=== PATIENT | female | born 1970 | race Caucasian/White ===

== ENCOUNTER 2020-03-11 18:25 | Inpatient (IN) | payer OTHER ==
[~2020-03-11] VITALS: Ht 165.1 cm; Wt 98.4 kg
[2020-03-11] MEDS ORDERED: HOLD METFORMIN - RECEIVED CONTRAST 20 ML VIAL IV SCH (19:00)
[2020-03-11] MEDS ORDERED: fentaNYL INJECTION 100 MCG/2 ML AMP IVP ONE (19:00)
[2020-03-11] MEDS ORDERED: IOHEXOL 350 MG/ML 100 ML (OMNIPAQUE 350) VIAL IV ONE (19:00)
[2020-03-11] MEDS ORDERED: NS 100 ML (IVPB) BAG IV ONE (19:00)
[2020-03-11] MEDS ORDERED: ONDANSETRON 4 MG/2 ML (SDV) Z0FRAN IVP ONE (19:00)
--- NOTE | 2020-03-11 19:00 | NUR ---
REPORT TO ANTONIETTA RIVERA
--- OUTSIDE RECORDS SUMMARY | 2020-03-11 19:01 | XMS REPORT ---
Author Author India WHALEY Organization [facility] Address [address] [place] [address] Care Team Providers Care Database Management Specialist Name Role Phone ESTHER WHALEY Unavailable PROBLEMS Unknown Problems ALLERGIES No Information ENCOUNTERS Encounter Location Date Diagnosis [facility] [address] [facility] [id number] [place] [address] Mar, [facility] [address] [id number] [place] [address] Apr, Viral upper respiratory trac t infection J06.9 and Sore throat J02.9 [facility] [address] [id number] [place] [address] Dec, [facility] IN [facility] [address] [id number] [place] [address] Nov, [facility] [address] [id number] [place] [address] Nov, [facility] [address] [id number] [place] [address] Nov, UTI (lower urinary tract inf ection) N39.0 and Dysuria R30.0 IMMUNIZATIONS No Known Immunizations SOCIAL HISTORY Never Assessed REASON FOR VISIT insurance and paperwork PLAN OF CARE VITAL SIGNS MEDICATIONS Unknown Medications RESULTS No Results PROCEDURES No Known procedures INSTRUCTIONS MEDICATIONS ADMINISTERED No Known Medications MEDICAL (GENERAL) HISTORY Type Description Date Medical History anxiety Medical History depression Medical History Hypothyroidism Medical History anemia Surgical History gastric bypass 2002 Hospitalization History see surgeries
--- OUTSIDE RECORDS SUMMARY | 2020-03-11 19:01 | XMS REPORT ---
Author Author India LAO Organization [facility] Address [address] [place] [address] Care Team Providers Care Shipbuilding Draftsperson Name Role Phone ANNAMARIA LAO Unavailable PROBLEMS Unknown Problems ALLERGIES No Information ENCOUNTERS Encounter Location Date Diagnosis [facility] [address] [place] [address] Apr, Viral upper respiratory tract infection J06.9 and Sore throat J02.9 [facility] [address] [place] [address] Dec, [facility] [address] [facility] [place] [address] Nov, [facility] [address] [facility] [place] [address] Nov, [facility] [address] [place] [address] Nov, UTI (lower urinary tract infection) N39. 0 and Dysuria R30.0 IMMUNIZATIONS No Known Immunizations SOCIAL HISTORY Never Assessed REASON FOR VISIT Lab results PLAN OF CARE VITAL SIGNS MEDICATIONS No Known Medications RESULTS No Results PROCEDURES No Known procedures INSTRUCTIONS MEDICATIONS ADMINISTERED No Known Medications MEDICAL (GENERAL) HISTORY Type Description Date Medical History anxiety Medical History depression Medical History Hypothyroidism Medical History anemia Surgical History gastric bypass 2001 Hospitalization History see surgeries
--- OUTSIDE RECORDS SUMMARY | 2020-03-11 19:01 | XMS REPORT ---
Author Author India BROWN Organization [facility] Address [address] [place] [address] Care Team Providers Care Political Anthropologist Name Role Phone MARIO BROWN Unavailable PROBLEMS Unknown Problems ALLERGIES No Information ENCOUNTERS Encounter Location Date Diagnosis [facility] [address] [place] [facility] [place] [address] Dec, [facility] [address] [place] [address] Nov, [facility] [address] [place] [facility] [address] Nov, [facility] IN [facility] [address] [place] [address] Nov, UTI (lower urinary tract infection) N39. 0 and Dysuria R30.0 IMMUNIZATIONS No Known Immunizations SOCIAL HISTORY Never Assessed REASON FOR VISIT Test results PLAN OF CARE VITAL SIGNS MEDICATIONS Unknown Medications RESULTS No Results PROCEDURES No Known procedures INSTRUCTIONS MEDICATIONS ADMINISTERED No Known Medications MEDICAL (GENERAL) HISTORY Type Description Date Medical History anxiety Medical History depression Medical History Hypothyroidism Medical History anemia Surgical History gastric bypass 2001 Hospitalization History see surgeries
--- OUTSIDE RECORDS SUMMARY | 2020-03-11 19:01 | XMS REPORT ---
Author Author India LAO Organization [facility] Address [address] [place] [address] Care Team Providers Care Station Attendant Name Role Phone ANNAMARIA LAO Unavailable PROBLEMS Unknown Problems ALLERGIES No Known Allergies ENCOUNTERS Encounter Location Date Diagnosis [facility] [address] [place] [address] Apr, Viral upper respiratory tract infection J06.9 and Sore throat J02.9 [facility] [address] [place] [address] Dec, [facility] [address] [facility] [address] Nov, [facility] [address] [facility] [address] Nov, [facility] [address] [facility] [address] Nov, UTI (lower urinary tract infection) N39. 0 and Dysuria R30.0 IMMUNIZATIONS No Known Immunizations SOCIAL HISTORY Never Assessed REASON FOR VISIT UTI symptoms x2 days.. [facility] PLAN OF CARE Activity Details Follow Up f/u pending culture and prn Reason: VITAL SIGNS Height 65 in 2018-11-16 Weight 190 lbs 2018-11-16 Temperature 97.9 degrees Fahrenheit 2018-11-16 Heart Rate 74 bpm 2018-11-16 Respiratory Rate 20 2018-11-16 Oximetry 98 % 2018-11-16 BMI 31.61 kg/m2 2018-11-16 Blood pressure systolic 120 mmHg 2018-11-16 Blood pressure diastolic 74 mmHg 2018-11-16 MEDICATIONS Medication Instructions Dosage Frequency Start Date End Date Duration S tatus Macrobid 100 MG Orally every 12 hrs 1 capsule with food 12h 13 M ar, 2018 05 days Active Prozac 40 MG Orally Once a day 1 capsule 24h 30 day( s) Active Levothyroxine Sodium 112 MCG Orally Once a day 1 capsule o n an empty stomach in the morning 24h 30 day(s) Active Ferrous Sulfate 325 (65 Fe) MG Orally 3 times a day 1 tablet 8h 30 day(s) Active RESULTS No Results PROCEDURES Procedure Date Ordered Result Body Site URINE CULTURE/COLONY COUNT November 16, 2018 URINALYSIS, AUTO, W/O SCOPE November 16, 2018 INSTRUCTIONS MEDICATIONS ADMINISTERED No Known Medications MEDICAL (GENERAL) HISTORY Type Description Date Medical History anxiety Medical History depression Medical History Hypothyroidism Medical History anemia Surgical History gastric bypass 2001 Hospitalization History see surgeries
--- OUTSIDE RECORDS SUMMARY | 2020-03-11 19:01 | XMS REPORT | Continuity of Care Document ---
Author Organization Unknown Address Unknown Phone Unavailable Allergies Active Description Code Type Severity Reaction Onset Reported/Identified Relationship to Patient Clinical Status Yes No Known Drug Allergies [id number] Drug Allergy Unknown N/A 03/11/2020 Medications There is no data. Problems There is no data. Procedures There is no data. Results Test Result Range CULTURE, URINE - 11/16/18 19:05 CULTURE, URINE, ROUTINE SEE NOTE NRG TESTOSTERONE, TOTAL (WOMEN, CHILDREN, HY POGONADAL MALES) - 03/04/20 14:02 TESTOSTERONE, TOTAL, LC/MS/MS 20 ng/dL 2-45 FREE TESTOSTERONE 0.7 pg/mL 0.1-6.4 Encounters ACCT No. Visit Date/Time Discharge Status Pt. Type Provider Facility Loc./Unit Complaint [id number] 03/11/2020 10:00:00 [facility] [id number] 03/04/2020 13:45:00 Document Registration [id number] 11/16/2018 18:00:00 Document Registration [id number] 03/11/2020 18:28:[address] Emergency LETTY DAMON, YUMIKO Kingsley [facility] ER ABD PAIN
[2020-03-11 19:06] LABS: BASOPHILS % (AUTO) 0 % (0-10); EOSINOPHILS # (AUTO) 0.3 10^3/uL (0.0-0.3); EOSINOPHILS % (AUTO) 2 % (0-10); HEMATOCRIT 43 % (35-52); LYMPHOCYTES # (AUTO) 1.9 X 10^3 (1.0-4.0); LYMPHOCYTES % (AUTO) 14 % (12-44); MEAN CORPUSCULAR HEMOGLOBIN 29 PG (25-34); MEAN CORPUSCULAR HGB CONC 33 G/DL (32-36); MEAN CORPUSCULAR VOLUME 90 FL (80-99); MEAN PLATELET VOLUME 9.6 FL (7.4-10.4); MONOCYTES # (AUTO) 1.3 X 10^3 (0.0-1.0); MONOCYTES % (AUTO) 10 % (0-12); NEUTROPHILS % (AUTO) 74 % (42-75); PLATELET COUNT 373 10^3/uL (130-400); RED CELL DISTRIBUTION WIDTH 17.5 % (10.0-14.5); WHITE BLOOD COUNT 13.6 10^3/uL (4.3-11.0)
[2020-03-11 19:14] LABS: ALBUMIN 3.9 GM/DL (3.2-4.5); CHLORIDE 103 MMOL/L (98-107); POTASSIUM 4.3 MMOL/L (3.6-5.0); SODIUM 136 MMOL/L (135-145)
[2020-03-11 19:15] LABS: CALCIUM 8.8 MG/DL (8.5-10.1)
[2020-03-11] MEDS ORDERED: NS IV 1000 ML 1,000 ML IV SCH (19:16)
[2020-03-11 19:17] LABS: GLUCOSE 97 MG/DL (70-105); TOTAL PROTEIN 6.6 GM/DL (6.4-8.2)
[2020-03-11 19:18] LABS: BILIRUBIN,TOTAL 0.5 MG/DL (0.1-1.0); CARBON DIOXIDE 22 MMOL/L (21-32)
[2020-03-11 19:20] LABS: ALKALINE PHOSPHATASE 104 U/L (40-136); CREATININE SERUM 0.84 MG/DL (0.60-1.30); GFR ESTIMATED > 60
[2020-03-11 19:21] LABS: BUN/CREATININE RATIO 18
[2020-03-11 19:23] LABS: ALANINE AMINOTRANSFERASE 99 U/L (0-55)
[2020-03-11 19:29] LABS: LIPASE 483 U/L (8-78)
[2020-03-11 19:32] LABS: ANISOCYTOSIS SLIGHT; EOSINOPHILS % (MANUAL) 2 %; LYMPHOCYTES % (MANUAL) 14 %; MONOCYTES % (MANUAL) 9 %; NEUTROPHILS % (MANUAL) 75 %
--- NOTE | 2020-03-11 19:43 | ED Abdominal Pain ---
General Chief Complaint: Abdominal/GI Problems Stated Complaint: ABD PAIN Nursing Triage Note: PT CO OF ABD PAIN, PT STATES HAS LOWER ABD CRAMPING ALL THE TIME. PT STATES HAS UPPER L ABD PAIN 10/10. STATES SCHEDULED TO HAVE IUD REMOVED NEXT WEDNESDAY AND HAVE [place]ERECT[place]. PT STATES HAS HX OF ANEMIA. DENIES FEVER AND COUGH. WAS INSTRUCTED TO COME TO ED BY DR ZUNIGA OFFICE Sepsis Screen: No Definite Risk Source of Information: Patient, Other (Dr. Zuniga and staff) Exam Limitations: No Limitations History of Present Illness Date Seen by Provider: Mar 11, 2020 Time Seen by Provider: 18:30 Initial Comments This 49-year-old woman presents to the emergency room by private vehicle with complaints of left upper quadrant pain and nausea. She reports her pain as 10 out of 10 and radiates to her back. She was sent to the ER by Dr. Smith's staff. She had seen him earlier in the day because of problems with heavy vaginal bleeding and an embedded IUD. IUD was placed 3 months ago she bled all through the month of February. Dr. Zuniga performed an ultrasound of the clinic and suspected the IUD was embedded. She has hysterectomy scheduled for a week from tomorrow in [place], [place]. She took Tylenol with Codeine today and pain seemed to escalate after that. Patient reports her anemia and requiring iron infusions and transfusions in the past. He denies any concussion symptoms at this time. He states the right eye feels "weird" but he denies any vision deficit. Allergies and Home Medications Allergies Coded Allergies: No Known Drug Allergies (Unverified , 03/11/20) Patient Home Medication List Home Medication List Reviewed: Yes Review of Systems Review of Systems Constitutional: no symptoms reported EENTM: No Symptoms Reported Respiratory: No Symptoms Reported Cardiovascular: No Symptoms Reported Gastrointestinal: See HPI Genitourinary: No Symptoms Reported Musculoskeletal: no symptoms reported Skin: no symptoms reported Psychiatric/Neurological: No Symptoms Reported Endocrine: No Symptoms Reported Hematologic/Lymphatic: No Symptoms Reported Past Ecbysqr-Nhypfk-Tanxqu Hx Past Med/Social Hx: Reviewed and Corrections made Patient Social History Alcohol Use: Denies Use Recreational Drug Use: No Smoking Status: Never a Smoker Recent Foreign Travel: No Contact w/Someone Who Travel: No Recent Infectious Disease Expo: No Recent Hopitalizations: No Physical Abuse: No Sexual Abuse: No Seasonal Allergies Seasonal Allergies: No Past Medical History Surgeries: Yes (GASTRIC BY PASS, IUD, Essure) Gallbladder, Tubal Ligation Respiratory: No Cardiac: No Neurological: No : No LAY OUT CARPENTER History: IUD, Tubal Ligation (Essure) Genitourinary: No Gastrointestinal: No Musculoskeletal: No Endocrine: Yes Hypothyroidsim Psychosocial: Yes Depression Integumentary: No Physical Exam Vital Signs Vital Signs - First Documented 03/11/20 18:39 Temp 36.8 Pulse 71 Resp 18 B/P (MAP) 126/88 (101) Pulse Ox 100 Capillary Refill : Less Than 3 Seconds Height/Weight/BMI Height: '" Weight: lbs. oz. kg; 34.00 BMI Method: General Appearance: WD/WN, no apparent distress HEENT: PERRL/EOMI, other (no apparent dental injury. 4-5 cm laceration on the right parietal scalp.) Neck: non-tender, normal inspection Respiratory: lungs clear, normal breath sounds, no respiratory distress, no accessory muscle use Cardiovascular: regular rate, rhythm, no edema, no murmur Gastrointestinal: normal bowel sounds, non tender, soft Extremities: non-tender, other (left BKA) Neurologic/Psychiatric: electrician chief II-XII nml as tested, normal mood/affect, oriented x 3; No motor weakness; sensory deficit (chronic and unchanged) Skin: normal color, warm/dry Progress/Results/Core Measures Results/Orders Lab Results Laboratory Tests Test 03/11/20 18:56 03/11/20 19:50 Range/Units White Blood Count 13.6 H 4.3-11.0 10^3/uL Red Blood Count 4.77 4.35-5.85 10^6/uL Hemoglobin 14.0 11.5-16.0 G/DL Hematocrit 43 35-52 % Mean Corpuscular Volume 90 80-99 FL Mean Corpuscular Hemoglobin 29 25-34 PG Mean Corpuscular Hemoglobin Concent 33 32-36 G/DL Red Cell Distribution Width 17.5 H 10.0-14.5 % Platelet Count 373 130-400 10^3/uL Mean Platelet Volume 9.6 7.4-10.4 FL Neutrophils (%) (Auto) 74 42-75 % Lymphocytes (%) (Auto) 14 12-44 % Monocytes (%) (Auto) 10 0-12 % Eosinophils (%) (Auto) 2 0-10 % Basophils (%) (Auto) 0 0-10 % Neutrophils # (Auto) 10.0 H 1.8-7.8 X 10^3 Lymphocytes # (Auto) 1.9 1.0-4.0 X 10^3 Monocytes # (Auto) 1.3 H 0.0-1.0 X 10^3 Eosinophils # (Auto) 0.3 0.0-0.3 10^3/uL Basophils # (Auto) 0.0 0.0-0.1 10^3/uL Neutrophils % (Manual) 75 % Lymphocytes % (Manual) 14 % Monocytes % (Manual) 9 % Eosinophils % (Manual) 2 % Anisocytosis SLIGHT Sodium Level 136 135-145 MMOL/L Potassium Level 4.3 3.6-5.0 MMOL/L Chloride Level 103 98-107 MMOL/L Carbon Dioxide Level 22 21-32 MMOL/L Anion Gap 11 5-14 MMOL/L Blood Urea Nitrogen 15 7-18 MG/DL Creatinine 0.84 0.60-1.30 MG/DL Estimat Glomerular Filtration Rate > 60 BUN/Creatinine Ratio 18 Glucose Level 97 70-105 MG/DL Calcium Level 8.8 8.5-10.1 MG/DL Corrected Calcium 8.9 8.5-10.1 MG/DL Total Bilirubin 0.5 0.1-1.0 MG/DL Aspartate Amino Transf (AST/SGOT) 239 H 5-34 U/L Alanine Aminotransferase (ALT/SGPT) 99 H 0-55 U/L Alkaline Phosphatase 104 40-136 U/L C-Reactive Protein High Sensitivity 0.07 0.00-0.50 MG/DL Total Protein 6.6 6.4-8.2 GM/DL Albumin 3.9 3.2-4.5 GM/DL Lipase 483 H 8-78 U/L Thyroid Stimulating Hormone (TSH) 10.60 H 0.35-4.94 UIU/ML Free Thyroxine 0.95 0.70-1.48 NG/DL Serum Test, Qualitative NEGATIVE NEGATIVE Urine Color YELLOW Urine Clarity CLEAR Urine pH 5.5 5-9 Urine Specific [place] 1.010 L 1.016-1.022 Urine Protein NEGATIVE NEGATIVE Urine Glucose (UA) NEGATIVE NEGATIVE Urine Ketones NEGATIVE NEGATIVE Urine Nitrite NEGATIVE NEGATIVE Urine Bilirubin NEGATIVE NEGATIVE Urine Urobilinogen 2.0 < = 1.0 MG/DL Urine Leukocyte Esterase NEGATIVE NEGATIVE Urine RBC (Auto) 3+ H NEGATIVE Urine RBC 0-2 /HPF Urine WBC RARE /HPF Urine Squamous Epithelial Cells 0-2 /HPF Urine Crystals NONE /LPF Urine Bacteria TRACE /HPF Urine Casts NONE /LPF Urine Mucus NEGATIVE /LPF Urine Culture Indicated NO My Orders Orders - YUMIKO SAENZ MD Cbc With Automated Diff (03/11/20 18:30) Comprehensive Metabolic Panel (03/11/20 18:30) Hs C Reactive Protein (03/11/20 18:30) Ua Culture If Indicated (03/11/20 18:30) Ed Iv/Invasive Line Start (03/11/20 18:30) Hcg,Qualitative Serum (03/11/20 18:40) Fentanyl Injection (Sublimaze Injection (03/11/20 19:00) Ondansetron Injection (Zofran Injectio (03/11/20 19:00) Ct Abdomen/Pelvis W (03/11/20 18:54) Iohexol Injection (Omnipaque 350 Mg/Ml 1 (03/11/20 19:00) Received Contrast (Hold Metformin- Contr (03/11/20 19:00) Ns (Ivpb) (Sodium Chloride 0.9% Ivpb Bag (03/11/20 19:00) Manual Differential (03/11/20 18:56) Ns Iv 1000 Ml (Sodium Chloride 0.9%) (03/11/20 19:16) Lipase (03/11/20 18:56) Thyroid Stimulating Hormone (03/11/20 20:06) Free T4 (Free Thyroxine) (03/11/20 20:06) Medications Given in ED Current Medications Medications Dose Ordered Sig/Jozef Route Start Time Stop Time Status Last Admin Dose Admin Fentanyl Citrate 50 mcg ONCE ONCE IVP 03/11/20 19:00 03/11/20 19:01 DC 03/11/20 19:05 50 MCG Iohexol 100 ml ONCE ONCE IV 03/11/20 19:00 03/11/20 19:01 DC 03/11/20 19:35 100 ML Ondansetron HCl 8 mg ONCE ONCE IVP 03/11/20 19:00 03/11/20 19:01 DC 03/11/20 19:04 8 MG Sodium Chloride 100 ml ONCE ONCE IV 03/11/20 19:00 7/6/20 19:01 DC 03/11/20 19:35 100 ML Vital Signs/I&O 03/11/20 18:39 Temp 36.8 Pulse 71 Resp 18 B/P (MAP) 126/88 (101) Pulse Ox 100 Blood Pressure Mean: 101 Progress Progress Note : Time: 19:44 Progress Note Patient was found to have pancreatitis with elevated lipase and probable ileus on CT scan. Case was reviewed with Dr. Sena and with patient. After discussion patient is agreeable to admission for observation for bowel rest and IV fluid and medication support. Cause of her pancreatitis is uncertain. She does not drink alcohol, does not have cholecystitis, and is not taking medic ations to cause pancreatitis. Symptoms were managed with fentanyl and Zofran. A liter of IV fluid was infused. Dr. Zuniga was updated. Diagnostic Imaging Diagonstic Imaging: CT Plain Films/CT/US/NM/MRI: abdomen, pelvis Comments CT abdomen and pelvis viewed by me and report reviewed. See report below: NAME: JAVY OSUNA [facility] REC#: [id number] PT STATUS: REG ER : 1970 PHYSICIAN: YUMIKO SAENZ MD ADMIT DATE: 03/11/20/ER Draft Date of Exam:03/11/20 CT ABDOMEN/PELVIS W PROCEDURE: CT abdomen and pelvis with contrast. TECHNIQUE: Multiple contiguous axial images were obtained through the abdomen and pelvis after administration of intravenous contrast. Auto Exposure Controls were utilized during the CT exam to meet ALARA standards for radiation dose reduction. INDICATION: Pain, vaginal bleeding COMPARISON: None available FINDINGS: Visualized lung bases are clear. Tiny hiatal hernia. Cholecystectomy. Minimal intrahepatic biliary dilatation is noted, likely secondary to reservoir effect status post cholecystectomy. The spleen is unremarkable. The adrenal glands are unremarkable. The pancreas is unremarkable. Postsurgical changes of a gastric bypass are noted. The bilateral kidneys are unremarkable. No aneurysmal dilatation of the abdominal aorta. The urinary bladder is unremarkable. Bilateral Essure devices are in place. The uterus is mildly prominent in size without focal mass lesion. Adnexal structures are unremarkable for age. Loops of small bowel near the anastomosis within the left upper abdomen are at the upper limits of normal in size measuring up to 2.7 cm. However, there does appear to be fecalization of small bowel contents within the left abdomen as well as within the terminal ileum. No significant adenopathy, free air, or free fluid within the abdomen or pelvis. Grade 1 anterolisthesis of L5 on S1 secondary to bilateral pars intra-articularis defects of L5. No acute osseous abnormality. IMPRESSION: Fecalization of small bowel contents within the left abdomen as well as within the terminal ileum. This may relate to underlying hypoperistalsis or low-grade ileus. No abnormally dilated loops of bowel. Postsurgical changes of a gastric bypass. Grade 1 anterolisthesis of L5 on S1 secondary to bilateral pars intra-articularis defects of L5. Mild intrahepatic biliary dilatation, favored to relate to reservoir effect status post cholecystectomy. Tiny hiatal hernia. Additional findings as described above. Dictated on workstation # [id number] Dict: 03/11/201941 Trans: 03/11/201958 [facility] [id number] Interpreted by: MADDI JEAN BAPTISTE MD Departure Communication (Admissions) Time/Spoke to Admitting Phy: 20:25 Dr. Leggett Time/Spoke to Consulting Phy: 20:10 Dr. Sena Impression Primary Impression: Pancreatitis Qualified Codes: K85.90 - Acute pancreatitis without necrosis or infection, unspecified Additional Impressions: Ileus Left upper quadrant pain Nausea alone Disposition: ADMITTED INPATIENT Condition: Improved Admissions Decision to Admit Reason: Admit from ER (General) Decision to Admit/Date: Mar 11, 2020 Time/Decision to Admit Time: 20:10 Copy Copies To 1: ERNESTINA ZUNIGA JOSHUA T MD Mar 11, 2020 19:43
--- NOTE | 2020-03-11 19:59 | Diagnostic Imaging Report ---
PROCEDURE: CT abdomen and pelvis with contrast. TECHNIQUE: Multiple contiguous axial images were obtained through the abdomen and pelvis after administration of intravenous contrast. Auto Exposure Controls were utilized during the CT exam to meet ALARA standards for radiation dose reduction. INDICATION: Pain, vaginal bleeding COMPARISON: None available FINDINGS: Visualized lung bases are clear. Tiny hiatal hernia. Cholecystectomy. Minimal intrahepatic biliary dilatation is noted, likely secondary to reservoir effect status post cholecystectomy. The spleen is unremarkable. The adrenal glands are unremarkable. The pancreas is unremarkable. Postsurgical changes of a gastric bypass are noted. The bilateral kidneys are unremarkable. No aneurysmal dilatation of the abdominal aorta. The urinary bladder is unremarkable. Bilateral Essure devices are in place. The uterus is mildly prominent in size without focal mass lesion. Adnexal structures are unremarkable for age. Loops of small bowel near the anastomosis within the left upper abdomen are at the upper limits of normal in size measuring up to 2.7 cm. However, there does appear to be fecalization of small bowel contents within the left abdomen as well as within the terminal ileum. No significant adenopathy, free air, or free fluid within the abdomen or pelvis. Grade 1 anterolisthesis of L5 on S1 secondary to bilateral pars intra-articularis defects of L5. No acute osseous abnormality. IMPRESSION: Fecalization of small bowel contents within the left abdomen as well as within the terminal ileum. This may relate to underlying hypoperistalsis or low-grade ileus. No abnormally dilated loops of bowel. Postsurgical changes of a gastric bypass. Grade 1 anterolisthesis of L5 on S1 secondary to bilateral pars intra-articularis defects of L5. Mild intrahepatic biliary dilatation, favored to relate to reservoir effect status post cholecystectomy. Tiny hiatal hernia. Additional findings as described above. Dictated by: Dictated on workstation # [id number]
[2020-03-11 20:00] LABS: BILIRUBIN,URINE NEGATIVE (NEGATIVE); CLARITY,URINE CLEAR; COLOR,URINE YELLOW; GLUCOSE, URINE (UA) NEGATIVE (NEGATIVE); KETONES,URINE NEGATIVE (NEGATIVE); LEUKOCYTE ESTERASE ,URINE NEGATIVE (NEGATIVE); NITRITE,URINE NEGATIVE (NEGATIVE); PH,URINE 5.5 (5-9); PROTEIN,URINE NEGATIVE (NEGATIVE)
[2020-03-11 20:06] LABS: BACTERIA,URINE TRACE /HPF; RBC,URINE 0-2 /HPF; SQUAMOUS EPITHELIAL CELL,UR 0-2 /HPF; WBC,URINE RARE /HPF
[2020-03-11 20:44] LABS: FREE T4 (FREE THYROXINE) 0.95 NG/DL (0.70-1.48)
--- OUTSIDE RECORDS SUMMARY | 2020-03-11 20:45 | XMS REPORT | Continuity of Care Document ---
Author Organization Unknown Address Unknown Phone Unavailable Allergies Active Description Code Type Severity Reaction Onset Reported/Identified Relationship to Patient Clinical Status Yes No Known Drug Allergies [id number] Drug Allergy Unknown N/A 03/11/2020 Medications There is no data. Problems There is no data. Procedures There is no data. Results Test Result Range CULTURE, URINE - 11/16/18 19:05 CULTURE, URINE, ROUTINE SEE NOTE NRG TESTOSTERONE, TOTAL (WOMEN, CHILDREN, HY POGONADAL MALES) - 03/04/20 14:02 TESTOSTERONE, TOTAL, LC/MS/MS 20 ng/dL 2-45 FREE TESTOSTERONE 0.7 pg/mL 0.1-6.4 Complete blood count (CBC) with automate d white blood cell (WBC) differential - 03/11/20 18:56 Blood leukocytes automated count (number/volume) 13.6 10*3/uL 4.3-11.0 Blood erythrocytes automated count (number/volume) 4.77 10*6/uL 4.35-5.85 Venous blood hemoglobin measurement (mass/volume) 14.0 g/dL 11.5-16.0 Blood hematocrit (volume fraction) 43 % 35-52 Automated erythrocyte mean corpuscular volume 90 [ foz_us] 80-99 Automated erythrocyte mean corpuscular h emoglobin (mass per erythrocyte) 29 pg 25-34 Automated erythrocyte mean corpuscular h emoglobin concentration measurement (mass/volume) 33 g/dL 32-36 Automated erythrocyte distribution width ratio 17. 5 % 10.0- 14.5 Automated blood platelet count (count/volume) 373 10*3/uL 130-400 Automated blood platelet mean volume measurement 9.6 [foz_us] 7.4-10.4 Automated blood neutrophils/100 leukocytes 74 % 42-75 Automated blood lymphocytes/100 leukocytes 14 % 12-44 Blood monocytes/100 leukocytes 10 % 0-12 Automated blood eosinophils/100 leukocytes 2 % 0-10 Automated blood basophils/100 leukocytes 0 % 0-10 Blood neutrophils automated count (number/volume) 10.0 10*3 1.8-7.8 Blood lymphocytes automated count (number/volume) 1.9 10*3 1.0-4.0 Blood monocytes automated count (number/volume) 1. 3 10*3 0.0-1.0 Automated eosinophil count 0.3 10*3/uL 0 .0-0.3 Automated blood basophil count (count/volume) 0.0 10*3/uL 0.0-0.1 Serum or plasma choriogonadotropin (preg rubin test) detection - 03/11/20 18:56 Serum or plasma choriogonadotropin ( test) de tection NEGATIVE NEGATIVE Comprehensive metabolic panel - 03/11/20 18:56 Serum or plasma sodium measurement (moles/volume) 136 mmol/L 135-145 Serum or plasma potassium measurement (moles/volume) 4.3 mmol/L 3.6-5.0 Serum or plasma chloride measurement (moles/volume) 103 mmol/L 98-107 Carbon dioxide 22 mmol/L 21-32 Serum or plasma anion gap determination (moles/volume) 11 mmol/L 5-14 Serum or plasma urea nitrogen measurement (mass/volume ) 15 mg/dL 7-18 Serum or plasma creatinine measurement (mass/volume) 0.84 mg/dL 0.60-1.30 Serum or plasma urea nitrogen/creatinine mass ratio 18 NRG Serum or plasma creatinine measurement w ith calculation of estimated glomerular filtration rate > NRG Serum or plasma glucose measurement (mass/volume) 97 mg/dL 70-105 Serum or plasma calcium measurement (mass/volume) 8.8 mg/dL 8.5-10.1 Serum or plasma total bilirubin measurement (mass/volu me) 0.5 mg/dL 0.1-1.0 Serum or plasma alkaline phosphatase archana surement (enzymatic activity/volume) 104 U/L 40-136 Serum or plasma aspartate aminotransfera se measurement (enzymatic activity/volume) 239 U/L 5-34 Serum or plasma alanine aminotransferase measurement (enzymatic activity/volume) 99 U/L 0-55 Serum or plasma protein measurement (mass/volume) 6.6 g/dL 6.4-8.2 Serum or plasma albumin measurement (mass/volume) 3.9 g/dL 3.2-4.5 CALCIUM CORRECTED 8.9 mg/dL 8.5-10.1 Lipase - 03/11/20 18:56 Lipase 483 U/L 8-78 Serum or plasma C reactive protein measu rement (mass/volume) - 03/11/20 18:56 Serum or plasma C reactive protein measurement (mass/v olume) 0.07 mg/dL 0.00-0.50 Manual absolute plasma cell count - 0702/23 18:56 Blood monocytes/100 leukocytes 9 % NRG Manual blood segmented neutrophils/100 leukocytes 75 % NRG Manual blood lymphocytes/100 leukocytes 14 % NRG Manual eosinophils/100 leukocytes in nose 2 % NRG Blood anisocytosis detection by light microscopy S LIGHT NRG Complete urinalysis with reflex to cultu re - 03/11/20 19:50 Urine color determination YELLOW NRG Urine clarity determination CLEAR NR G Urine pH measurement by test strip 5.5 5-9 Specific gravity of urine by test strip 1.010 1.016-1.022 Urine protein assay by test strip, semi-quantitative NEGATIVE NEGATIVE Urine glucose detection by automated test strip NE GATIVE NEGATIVE Erythrocytes detection in urine sediment by light micr oscopy 3+ NEGATIVE Urine ketones detection by automated test strip NE GATIVE NEGATIVE Urine nitrite detection by test strip NEGATIVE NEGATIVE Urine total bilirubin detection by test strip NEGA TIVE NEGATIVE Urine urobilinogen measurement by automated test strip (mass/volume) 2.0 mg/dL < = 1.0 Urine leukocyte esterase detection by dipstick NEG ATIVE NEGATIVE Automated urine sediment erythrocyte cou nt by microscopy (number/high power field) [HPF] NRG Automated urine sediment leukocyte count by microscopy (number/high power field) RARE NRG Bacteria detection in urine sediment by light microsco py TRACE NRG Squamous epithelial cells detection in u rine sediment by light microscopy 0-2 NRG Crystals detection in urine sediment by light microsco py NONE NRG Casts detection in urine sediment by light microscopy NONE NRG Mucus detection in urine sediment by light microscopy NEGATIVE NRG Complete urinalysis with reflex to culture NO NRG Encounters ACCT No. Visit Date/Time Discharge Status Pt. Type Provider Facility Loc./Unit Complaint [id number] 03/11/2020 10:00:00 ACT Outpatient RAD[facility]ARIO [facility] [place] [id number] 03/04/2020 13:45:00 Document Registration [id number] 11/16/2018 18:00:00 Document Registration [id number] 03/11/2020 20:27:[address] Inpatient RAAD PICHARDO DO [facility] 4TH PANCREATITIS,NAUSEA,ILEUS
--- NOTE | 2020-03-11 20:52 | NUR ---
Attempted to call report to [facility], states she will call back.
--- NOTE | 2020-03-11 21:28 | NUR ---
JAVY OSUNA admitted to room 418-1, with an admitting diagnosis of PANCREATITIS, NAUSEA, ILEUS, on 03/11/20 from ED via , accompanied by ED STAFF.JAVY OSUNA introduced to surroundings, call light, bed controls, phone, TV, temperature control, lights, meal times, smoking policy, visitor policy, side rail policy, bathrooms and showers. Patient Rights given to patient in the handbook. JAVY OSUNA verbalizes understanding that [facility] is not responsible for the loss or damage to any personal effects or valuables that are kept in the patients posession during their hospitalization. The following Patient Care Plans were discussed with the PATIENT: Discharge Planning, NAUSEA,PANCREATITIS, and ILEUS. JAVY OSUNA verbalizes understanding of Interdisciplinary Patient Education. Patient and/or family were informed about the Rapid Response Team and its purpose.
[2020-03-11] MEDS ORDERED: PROMETHAZINE INJ 25 MG/ML (PHENERGAN) AMP IV PRN (21:30)
[2020-03-11] MEDS ORDERED: ONDANSETRON 4 MG/2 ML (SDV) Z0FRAN IV PRN (21:30)
[2020-03-11 21:34] VITALS: BP 107/71
[2020-03-11] MEDS: FAMOTIDINE 20MG/2ML IV (PEPCID) IV SCH (22:01)
[2020-03-11] MEDS: ENOXAPARIN 40 MG/0.4 ML (LOVENOX) SYR SC SCH ×2 (22:01→22:08)
[2020-03-11] MEDS: HYDROmorphone 2 MG/ML VIAL (DILAUDID) IV PRN (22:01)
[2020-03-11] MEDS: D5 1/2 NS W/KCL 20 MEQ/L 1,000 ML IV SCH (22:01)
[2020-03-11 23:51] VITALS: BP 101/66
[2020-03-12 04:06] VITALS: BP 90/60
[2020-03-12] MEDS: HYDROmorphone 2 MG/ML VIAL (DILAUDID) IV PRN ×4 (04:28→19:46)
[2020-03-12] MEDS: D5 1/2 NS W/KCL 20 MEQ/L 1,000 ML IV SCH (04:32)
[2020-03-12 05:53] LABS: BASOPHILS % (AUTO) 0 % (0-10); EOSINOPHILS # (AUTO) 0.2 10^3/uL (0.0-0.3); EOSINOPHILS % (AUTO) 4 % (0-10); HEMATOCRIT 40 % (35-52); HEMOGLOBIN 12.8 G/DL (11.5-16.0); LYMPHOCYTES # (AUTO) 1.4 X 10^3 (1.0-4.0); LYMPHOCYTES % (AUTO) 25 % (12-44); MEAN CORPUSCULAR HEMOGLOBIN 29 PG (25-34); MEAN CORPUSCULAR HGB CONC 32 G/DL (32-36); MEAN CORPUSCULAR VOLUME 91 FL (80-99); MEAN PLATELET VOLUME 9.7 FL (7.4-10.4); MONOCYTES # (AUTO) 0.6 X 10^3 (0.0-1.0); MONOCYTES % (AUTO) 12 % (0-12); NEUTROPHILS # (AUTO) 3.2 X 10^3 (1.8-7.8); NEUTROPHILS % (AUTO) 59 % (42-75); PLATELET COUNT 332 10^3/uL (130-400); RED CELL DISTRIBUTION WIDTH 17.6 % (10.0-14.5); WHITE BLOOD COUNT 5.4 10^3/uL (4.3-11.0)
[2020-03-12 06:08] LABS: ALBUMIN 3.4 GM/DL (3.2-4.5); CHLORIDE 109 MMOL/L (98-107); POTASSIUM 5.2 MMOL/L (3.6-5.0); SODIUM 141 MMOL/L (135-145)
[2020-03-12 06:09] LABS: CALCIUM 8.4 MG/DL (8.5-10.1)
[2020-03-12 06:10] LABS: GLUCOSE 87 MG/DL (70-105); TOTAL PROTEIN 5.8 GM/DL (6.4-8.2)
[2020-03-12 06:11] LABS: CARBON DIOXIDE 26 MMOL/L (21-32)
[2020-03-12 06:12] LABS: BILIRUBIN,TOTAL 0.6 MG/DL (0.1-1.0)
[2020-03-12 06:14] LABS: ALKALINE PHOSPHATASE 196 U/L (40-136); CREATININE SERUM 0.81 MG/DL (0.60-1.30); GFR ESTIMATED > 60
[2020-03-12 06:15] LABS: BUN/CREATININE RATIO 10
[2020-03-12 06:17] LABS: ALANINE AMINOTRANSFERASE 515 U/L (0-55); LIPASE 73 U/L (8-78)
[2020-03-12 08:00] VITALS: BP 102/70
[2020-03-12] MEDS: medroxyPROGESTERone 10 MG (PROVERA) TAB PO SCH (08:07)
[2020-03-12] MEDS: FAMOTIDINE 20MG/2ML IV (PEPCID) IV SCH ×2 (08:07→20:46)
[2020-03-12] MEDS: LACTATED RINGERS 1,000 ML IV SCH ×3 (08:36→22:29)
--- NOTE | 2020-03-12 10:14 | Consultation ---
History of Present Illness History of Present Illness Patient Consulted On(pascale/time) 03/12/20 10:10 Date Seen by Provider: Mar 12, 2020 Time Seen by Provider: 11:00 Reason for Visit: abnormal vaginal bleeding History of Present Illness History - this is a 49-year-old 3 para 3 female with a long history of abnormal vaginal bleeding. She is a patient of Dr. Zuniga. She states that she has been having heavy vaginal bleeding, though regular, for several months. 3 months ago she had an IUD placed by Saida Meza APRN, at Dr. Hoyos's office in the [place], [place]. She states that following placement of the IUD, Dr. Hoyos confirmed that the IUD was placed appropriately. But she states when Saida went through her ultrasound report with her and, she had "ovarian cysts". She also has had an Essure placed hysteroscopically bilaterally multiple years ago by Dr. Tomer Cam. She states that she had an HSG following placement of the Essure. About 1 month ago she started having even heavier bleeding. She states that prior to the IUD she would gush a large baseball size clots and where tampons and pads. But her bleeding was at least scheduled. About a month ago she started having unscheduled heavier bleeding. She states it was variable and very intermittent and unexpected. She's been having discomfort in the entire lower abdomen but cannot be specific to one area. In addition she also has a history of iron deficiency anemia and has been receiving iron infusions approximately every 3 months with the last one being about a month ago. She saw Dr. Zuniga yesterday for preop. She is scheduled for a laparoscopic hysterectomy on Wednesday in [place]. She states after her appointment she started having pain and she called the office and they told her to take Tylenol with Codeine so she took 2 of them. And she also increased her bleeding so she was to take to Provera. One hour later the pain was even more severe and the bleeding was heavier since Dr. Zuniga [facility] to the emergency room and was told to be paged. Apparently they did a workup in the emergency room and she had no evidence of anemia, but her lipase was elevated and her liver function tests were mildly elevated. They diagnosed her with acute pancreatitis and admitted her. CT scan of the abdomen was essentially negative. But they did diagnose and ileus. No evidence of bowel obstruction. Since admission her bleeding has gotten heavier, so they consulted me because Dr. Zuniga is not mammal control agent. I have not been notified by Dr. Zuniga but he did state that he has her on Provera/medroxyprogesterone when I text him to ask about this consultation. I have asked for records from Dr. Zuniga office, and have not received those. The patient does not think she's had an endometrial biopsy but she does state that she did have an ultrasound. She can't remember at what point the ultrasound was done but thinks it was done at that the [facility]. She has no previous history of pancreatitis and no known history of elevated liver function tests. She did have nausea but never had vomiting. She states she still has some nausea today, but she did have some pain this morning that required pain medication. She had a history of cholecystectomy done via open surgery at the age of 19. She also has a history of an open gastric bypass about 19 years ago. She states she has been able to keep the weight off but has noticed a slight increase in her weight since she was put on Provera a month ago to help with the bleeding. She is hypothyroid, and she has been taking Synthroid at a dose of 112 g she states also that she's had no recent change in her levothyroxine dose and that the last TSH several weeks ago was "okay" today it is 10.4. She is concerned that what is being seen on the ultrasound is essure rather than an embedded IUD. currently she is in bed, she states she needs to get up because she is having some bleeding. But she states it is slightly better. She did have a dose of medroxyprogesterone at 9 a.m. She's currently not complaining of any nausea. She states that pain is currently stable. She has been nothing by mouth since admission last night. She is getting IV fluids. she declines alcohol usage, no drug usage, no excessive Tylenol usage, no previous history of pancreatitis, no fever, no history of autoimmune diseases except hypothyroid. I do not know her cause of hypothyroidism. She is 3 para 3 with 3 uncomplicated vaginal deliveries. Allergies and Home Medications Allergies Coded Allergies: No Known Drug Allergies (Unverified , 03/11/20) Patient Home Medication List Home Medication List Reviewed: Yes Past Mpkxbep-Usmfmg-Fewuxh Hx Past Med/Social Hx: Reviewed and Corrections made Patient Social History Alcohol Use: Denies Use Recreational Drug Use: No Smoking Status: Never a Smoker Recent Foreign Travel: No Contact w/Someone Who Travel: No Recent Infectious Disease Expo: No Recent Hopitalizations: No Physical Abuse: No Sexual Abuse: No Seasonal Allergies Seasonal Allergies: No Past Medical History Surgeries: Yes (GASTRIC BY PASS, IUD, Essure, open cholecystectomy at age 19) Gallbladder, Tubal Ligation Respiratory: No Cardiac: No Neurological: No : No Hx : 3 Hx Para: 3 Reproductive Disorders: Yes (menorrhagia.) FAST FOOD ATTENDANT History: IUD, Tubal Ligation (Essure) Genitourinary: No Gastrointestinal: No Musculoskeletal: No Endocrine: Yes Hypothyroidsim Psychosocial: Yes Depression Integumentary: No Family Medical History Cancer (she reports that her mother had a hysterectomy at age 24 due to "uterine cancer" urine she states that they left her ovaries. It does make me wonder if the mother had cervical dysplasia or cervical cancer rather than uterine cancer with a hysterectomy at that age. No other family history of gynecologic or reproductive cancers that she is aware of.) Review of Systems-General Constitutional: no symptoms reported EENTM: no symptoms reported Respiratory: no symptoms reported Cardiovascular: no symptoms reported Gastrointestinal: LUQ, other (lower pelvic cramping bilateral) Genitourinary: no symptoms reported Musculoskeletal: no symptoms reported Skin: no symptoms reported Psychiatric/Neurological: No Symptoms Reported Physical Exam-General Problems Physical Exam Vital Signs Vital Signs - First Documented 03/11/20 03/11/20 18:39 21:28 Temp 36.8 Pulse 71 Resp 18 B/P (MAP) 126/88 (101) Pulse Ox 100 O2 Delivery Room Air Capillary Refill : Less Than 3 Seconds General Appearance: WD/WN, no apparent distress Neck: non-tender Respiratory: chest non-tender Cardiovascular: regular rate, rhythm Gastrointestinal: other (her abdomen is soft and not tender. There is no masses felt) Genital/Rectal: normal rectal tone, other (because she's currently in bed, I declined doing a pelvic exam at this time. We will await the pelvic and abdominal ultrasounds. The hospital but is not the ideal situation for a pelvic exam or endometrial biopsy. We will continue to request records from [place] and Dr. Zuniga office. But at this point will await ultrasound before we do a pelvic exam) Assessment/Plan Assessment/Plan Admission Diagnosis/Plan 1. acute pancreatitis, improving; etiology unclear 2. Elevated liver function tests, could be due to the pancreatitis or the Tylenol dosage. abdominal ultrasound is pending. Lipid panel, hepatitis panel, HIV are all pending. 3. Menometrorrhagia - this is not a new problem and the treatment for acute menorrhagia would be contraindicated with elevated liver functions in (IV estrogen). She has already received by mouth Provera and are ready has a progestin containing IUD. Depo-Provera would not stop the bleeding acutely. So we will wait for the records from [place] and from Dr. Zuniga office to see what already has been done has been done. But I have ordered a pelvic ultrasound. 4. the patient had a hysterectomy right now. She states they just want this all done. I did discuss with her that with her chemistry panel is not feasible to do a hysterectomy at this point. But we could offer a robotic hysterectomy with possible oophorectomy at a later date. She is very scheduled for laparoscopic hysterectomy in [place]. in addition she is unsure about removing ovaries. The decision about hormone replacement may also be complicated by the elevated liver functions. If this is an acute process then she may be able to take estrogen at a later date, but estrogen is contraindicated in acute and chronic liver disease. 5. I discussed this all with her. At this point we will await the pending labs and the pending ultrasound reports and also pending records from her previous providers. I will come back to speak with the patient once the results of the ultrasounds are available Thank you for this consultation. Please on hesitate to call for further questions or concerns.[phone] Clinical Quality Measures DVT/VTE Risk/Contraindication: Risk Factor Score Per Nursin RFS Level Per Nursing on Admit: 2=Moderate KIANNA SHINE DO Mar 12, 2020 10:14
--- NOTE | 2020-03-12 10:16 | NUR ---
I HAVE ASSESSED PT AND REVIEWED CHARTING AND AGREE WITH DOCUMENTATION PRECEPTOR.
[2020-03-12 12:00] VITALS: BP 101/68
[2020-03-12] MEDS ORDERED: FLUO40CA PO (12:27)
[2020-03-12] MEDS ORDERED: CNC1KV IJ (12:27)
[2020-03-12] MEDS ORDERED: MEFE250C19 PO (12:27)
[2020-03-12] MEDS ORDERED: LEVO112T68 PO (12:27)
[2020-03-12] MEDS ORDERED: MEDR10TA9 PO (12:27)
[2020-03-12] MEDS ORDERED: ACET-2267 PO (12:27)
[2020-03-12] MEDS ORDERED: ACET1TAB43 PO (12:27)
[2020-03-12] MEDS ORDERED: FERR-84 PO (12:27)
--- NOTE | 2020-03-12 12:28 | NUR ---
SPOKE WITH THE PT AND WENT THRU THE EXT MED HISTORY TO COMPLETE THE MED REC 03-11-2020 MEFENAMIC ACID 250MG #20 DIRECTIONS ARE 2 TABS FOR THE FIRST DOSE THEN 1 TAB EVERY 6 HOURS- PT HAS NOT STARTED TAKING THIS YET. HOWEVER I DID PUT IT ON THE MED REC SO IT COULD BE CONTINUED A HOME MED IN INPATIENT OR CAN BE DISCHARGED PROPERLY SPRINTEC WAS RECENTLY FILLED AT [facility] HOWEVER THE PT IS NOT TAKING OTC MEDS: TYLENOL IRON
[2020-03-12 12:36] LABS: TRIGLYCERIDES 136 MG/DL (<150)
[2020-03-12 12:37] LABS: AMYLASE 65 U/L (25-125); CHOLESTEROL 174 MG/DL (< 200); HDL CHOLESTEROL 49 MG/DL (40-60); VLDL CHOLESTEROL 27 MG/DL (5-40)
--- NOTE | 2020-03-12 12:44 | History & Physical-Hospitalist ---
History of Present Illness HPI/Chief Complaint [place] Cazares is a 49-year-old female with past medical history of abnormal uterine bleeding, hypothyroidism, depression, who presented with epigastric abdominal pain. She reports that the pain is sharp and severe and radiates through to her back. She reports nausea but no vomiting. She denies any fevers or chills. She denies any diarrhea. She denies any shortness of breath or cough. She denies any chest pain. She has been having abnormal uterine bleeding. She is scheduled to have a hysterectomy next week. She denies any alcohol use. She denies any illicit drug use. She denies any excessive Tylenol use. She has had her gallbladder removed. She also has a history of gastric bypass. Source: patient Exam Limitations: no limitations Date Seen 03/12/20 Time Seen by a Provider: 11:05 Attending Physician Jen Leggett DO PCP Referring Physician Date of Admission Mar 11, 2020 at 20:27 Home Medications & Allergies Home Medications Reviewed patient Home Medication Reconciliation performed by pharmacy medication reconciliations nuclear medicine technician and/or nursing. Patients Allergies have been reviewed. Allergies Allergies Coded Allergies No Known Drug Allergies (Unverified03/11/20) Past Qxdfofy-Tacpzu-Ojeutd Hx Past Med/Social Hx: Reviewed Nursing Past Med/Soc Hx Patient Social History Alcohol Use: Denies Use Recreational Drug Use: No Smoking Status: Never a Smoker Recent Foreign Travel: No Contact w/other who traveled: No Recent Hopitalizations: No Recent Infectious Disease Expo: No Seasonal Allergies Seasonal Allergies: No Past Medical History Surgeries: Gallbladder, Tubal Ligation : No Hx : 3 Hx Para: 3 Reproductive: Yes (menorrhagia.) IUD, Tubal Ligation (Essure) Endocrine: Hypothyroidsim Psychosocial: Depression Family History Cancer (she reports that her mother had a hysterectomy at age 24 due to "uterine cancer" urine she states that they left her ovaries. It does make me wonder if the mother had cervical dysplasia or cervical cancer rather than uterine cancer with a hysterectomy at that age. No other family history of gynecologic or reproductive cancers that she is aware of.) Review of Systems Constitutional: no symptoms reported EENTM: no symptoms reported Respiratory: no symptoms reported Cardiovascular: no symptoms reported Gastrointestinal: abdominal pain, nausea Genitourinary: no symptoms reported Musculoskeletal: back pain Skin: no symptoms reported Psychiatric/Neurological: No Symptoms Reported Physical Exam Physical Exam Vital Signs Vital Signs - First Documented 03/11/20 03/11/20 18:39 21:28 Temp 36.8 Pulse 71 Resp 18 B/P (MAP) 126/88 (101) Pulse Ox 100 O2 Delivery Room Air Capillary Refill : Less Than 3 Seconds Height, Weight, BMI Height: '" Weight: lbs. oz. kg; 36.09 BMI Method: General Appearance: No Apparent Distress, Obese HEENT: PERRL/EOMI, Pharynx Normal Neck: Normal Inspection, Supple Respiratory: Lungs Clear, Normal Breath Sounds, No Respiratory Distress Cardiovascular: Regular Rate, Rhythm, No Edema, No Murmur Gastrointestinal: Normal Bowel Sounds, Non Tender, Soft Extremity: Normal Inspection, Non Tender, No Pedal Edema Neurologic/Psychiatric: Alert, Oriented x3, No Motor/Sensory Deficits, Normal Mood/Affect Skin: Normal Color, Warm/Dry Results Results/Procedures Labs Laboratory Tests 03/11/20 18:56 03/12/20 05:35 03/13/20 06:09 Patient resulted labs reviewed. Imaging: Reviewed Imaging Report Assessment/Plan Admission Diagnosis Acute pancreatitis Admission Status: Inpatient Order (span 2 midnights) Reason for Inpatient Admission: Pancreatitis requiring further evaluation and treatment Assessment and Plan Acute pancreatitis Elevated LFTs Epigastric pain and elevated lipase CT abdomen showed normal pancreas, large stool burden AST 699 and ALT 515 on arrival, bilirubin normal Hepatitis panel pending HIV pending Check abdominal ultrasound Repeat LFTs tomorrow Nothing by mouth Continue IV fluids Abnormal uterine bleeding LOADING UNIT TOOL SETTER consulted, appreciate assistance Continue medroxyprogesterone Transvaginal ultrasound ordered Hypothyroidism Depression Continue home meds DVT prophylaxis: Lovenox Diagnosis/Problems Diagnosis/Problems (1) Pancreatitis Status: Acute Qualifiers: Chronicity: acute Pancreatitis type: unspecified pancreatitis type Acute pancreatitis complication: no infection or necrosis Qualified Codes: K85.90 - Acute pancreatitis without necrosis or infection, unspecified (2) Elevated LFTs Status: Acute (3) Hypothyroidism Status: Chronic (4) Depression Status: Chronic Clinical Quality Measures DVT/VTE Risk/Contraindication: Risk Factor Score Per Nursin RFS Level Per Nursing on Admit: 2=Moderate ROSEMARY SHERMAN MD Mar 12, 2020 12:44
[2020-03-12 13:36] LABS: HEPATITIS C ANTIBODY C TNP:Duplicate Test
[2020-03-12] MEDS ORDERED: ACETAMINOPHEN 500 MG TAB (TYLENOL) PO PRN (15:30)
[2020-03-12] MEDS ORDERED: KETOROLAC 30 MG/ML VIAL IVP PRN (16:00)
[2020-03-12 16:01] VITALS: BP 105/63
--- NOTE | 2020-03-12 16:35 | Consultation - Surgery ---
History of Present Illness History of Present Illness Patient Consulted On(pascale/time) 03/12/20 16:29 Time Seen by Provider: 15:50 Reason for Visit: abnormal vaginal bleeding History of Present Illness Surgery asked to consult regarding pancreatitis. HPI per ED: PT CO OF ABD PAIN, PT STATES HAS LOWER ABD CRAMPING ALL THE TIME. PT STATES HAS UPPER L ABD PAIN 10/10. STATES SCHEDULED TO HAVE IUD REMOVED NEXT WEDNESDAY AND HAVE HYSTERECTOMY IN [place]. PT STATES HAS HX OF ANEMIA. DENIES FEVER AND COUGH. WAS INSTRUCTED TO COME TO ED BY DR ZUNIGA OFFICE This 49-year-old woman presents to the emergency room by private vehicle with complaints of left upper quadrant pain and nausea. She reports her pain as 10 out of 10 and radiates to her back. She was sent to the ER by Dr. Smith's staff. She had seen him earlier in the day because of problems with heavy vaginal bleeding and an embedded IUD. IUD was placed 3 months ago she bled all through the month of February. Dr. Zuniga performed an ultrasound of the clinic and wolf pected the IUD was embedded. She has hysterectomy scheduled for a week from tomorrow in [place], [place]. She took Tylenol with Codeine today and pain seemed to escalate after that. Patient reports her anemia and requiring iron infusions and transfusions in the past. He denies any concussion symptoms at this time. He states the right eye feels "weird" but he denies any vision deficit. When I spoke to the pt this afternoon she stated she felt much better and had no abdominal pain. At this time her main concern is the vaginal bleeding. She denies ever having pancreatitis prior to this. Allergies and Home Medications Allergies Coded Allergies: No Known Drug Allergies (Unverified , 03/11/20) Home Medications Acetaminophen 500 Mg Tablet, 1,000 MG PO Q8H PRN for PAIN-MILD (1-4), (Reported) Acetaminophen with Codeine 1 Each Tablet, 1 EA PO Q6H PRN for PAIN-MODERATE (5- 7), (Reported) Cyanocobalamin 1,000 Mcg/Ml Inj, 1,000 MCG IJ WEEKLY, (Reported) Ferrous Sulfate 325 Mg Tablet, 325 MG PO DAILY, (Reported) Fluoxetine HCl 40 Mg Capsule, 40 MG PO DAILY, (Reported) Levothyroxine Sodium 112 Mcg Tablet, 112 MCG PO DAILY, (Reported) Medroxyprogesterone Acetate 10 Mg Tablet, 10 MG PO DAILY, (Reported) Mefenamic Acid 250 Mg Capsule, 250-500 MG PO Q6H PRN for PAIN-BREAKTHROUGH, (Reported) PT HAS NOT TAKEN A DOSE OF THIS MEDICATION DIRECTIONS: 2 TABS NOW THEN 1 TAB EVERY 6 HOURS Patient Home Medication List Home Medication List Reviewed: Yes Past Pfziplc-Zgxrfb-Sufxwh Hx Patient Social History Alcohol Use: Denies Use Recreational Drug Use: No Smoking Status: Never a Smoker Recent Foreign Travel: No Contact w/Someone Who Travel: No Recent Infectious Disease Expo: No Recent Hopitalizations: No Seasonal Allergies Seasonal Allergies: No Surgeries History of Surgeries: Yes (GASTRIC BY PASS, IUD, Essure, open cholecystectomy at age 19) Surgeries: Gallbladder, Tubal Ligation Respiratory History of Respiratory Disorde: No Cardiovascular History of Cardiac Disorders: No Neurological History of Neurological Disord: No Reproductive System : No Hx : 3 Hx Para: 3 Hx Reproductive Disorders: Yes (menorrhagia.) PICU NURSE History: IUD, Tubal Ligation (Essure) Genitourinary History of Genitourinary Disor: No Gastrointestinal History of Gastrointestinal Di: No Musculoskeletal History of Musculoskeletal Dis: No Endocrine History of Endocrine Disorders: Yes Endocrine Disorders: Hypothyroidsim Psychosocial History of Psychiatric Problem: Yes Behavioral Health Disorders: Depression Integumentary History of Skin or Integumenta: No Family Medical History Significant Family History: Cancer (she reports that her mother had a hysterectomy at age 24 due to "uterine cancer" urine she states that they left her ovaries. It does make me wonder if the mother had cervical dysplasia or cervical cancer rather than uterine cancer with a hysterectomy at that age. No other family history of gynecologic or reproductive cancers that she is aware of.) Review of Systems-General Constitutional: malaise, weakness EENTM: No blurred vision, No double vision, No mouth pain, No mouth swelling, No epistaxis Respiratory: No cough, No dyspnea on exertion, No short of breath Cardiovascular: No chest pain, No edema Gastrointestinal: abdominal pain, nausea; No vomiting Genitourinary: No dysuria, No frequency, No hematuria : No Musculoskeletal: No joint swelling, No muscle stiffness Skin: No change in color, No change in hair/nails, No pruritus Psychiatric/Neurological: Denies Anxiety; Depressed; Denies Seizure, Denies Tremors Other pt denies any hx of abnormal bruising, she is having severe vaginal bleeding; but no other abnormal bleeding Physical Exam-General Problems Physical Exam Vital Signs Vital Signs - First Documented 03/11/20 03/11/20 18:39 21:28 Temp 36.8 Pulse 71 Resp 18 B/P (MAP) 126/88 (101) Pulse Ox 100 O2 Delivery Room Air Capillary Refill : Less Than 3 Seconds General Appearance: no apparent distress, obese Eyes: Bilateral Eye PERRL, Bilateral Eye EOMI HEENT: pharynx normal; No scleral icterus (R), No scleral icterus (L) Neck: non-tender, full range of motion, supple Respiratory: chest non-tender, lungs clear, normal breath sounds, no respiratory distress, no accessory muscle use Cardiovascular: regular rate, rhythm, no murmur Gastrointestinal: non tender, soft, no organomegaly Back: no CVA tenderness, no vertebral tenderness Extremities: no pedal edema, no calf tenderness, normal capillary refill Neurologic/Psychiatric: elevator erector II-XII nml as tested, alert, normal mood/affect, oriented x 3 Skin: normal color, warm/dry Lymphatic: no adenopathy (neck, axilla or groin) Data Review Labs Laboratory Tests 03/11/20 18:56: White Blood Count 13.6H, Red Blood Count 4.77, Hemoglobin 14.0, Hematocrit 43, Mean Corpuscular Volume 90, Mean Corpuscular Hemoglobin 29, Mean Corpuscular Hemoglobin Concent 33, Red Cell Distribution Width 17.5H, Platelet Count 373, Mean Platelet Volume 9.6, Neutrophils (%) (Auto) 74, Lymphocytes (%) (Auto) 14, Monocytes (%) (Auto) 10, Eosinophils (%) (Auto) 2, Basophils (%) (Auto) 0, Neutrophils # (Auto) 10.0H, Lymphocytes # (Auto) 1.9, Monocytes # (Auto) 1.3H, Eosinophils # (Auto) 0.3, Basophils # (Auto) 0.0, Neutrophils % (Manual) 75, Lymphocytes % (Manual) 14, Monocytes % (Manual) 9, Eosinophils % (Manual) 2, Anisocytosis SLIGHT, Sodium Level 136, Potassium Level 4.3, Chloride Level 103, Carbon Dioxide Level 22, Anion Gap 11, Blood Urea Nitrogen 15, Creatinine 0.84, Estimat Glomerular Filtration Rate > 60, BUN/Creatinine Ratio 18, Glucose Level 97, Calcium Level 8.8, Corrected Calcium 8.9, Total Bilirubin 0.5, Aspartate Amino Transf (AST/SGOT) 239H, Alanine Aminotransferase (ALT/SGPT) 99H, Alkaline Phosphatase 104, C-Reactive Protein High Sensitivity 0.07, Total Protein 6.6, Albumin 3.9, Lipase 483H, Thyroid Stimulating Hormone (TSH) 10.60H, Free Thyroxine 0.95, Serum Test, Qualitative NEGATIVE 03/11/20 19:50: Urine Color YELLOW, Urine Clarity CLEAR, Urine pH 5.5, Urine Specific [place] 1.010L, Urine Protein NEGATIVE, Urine Glucose (UA) NEGATIVE, Urine Ketones NEGATIVE, Urine Nitrite NEGATIVE, Urine Bilirubin NEGATIVE, Urine Urobilinogen 2.0, Urine Leukocyte Esterase NEGATIVE, Urine RBC (Auto) 3+H, Urine RBC 0-2, Urine WBC RARE, Urine Squamous Epithelial Cells 0-2, Urine Crystals NONE, Urine Bacteria TRACE, Urine Casts NONE, Urine Mucus NEGATIVE, Urine Culture Indicated NO 03/12/20 05:35: White Blood Count 5.4, Red Blood Count 4.37, Hemoglobin 12.8, Hematocrit 40, Mean Corpuscular Volume 91, Mean Corpuscular Hemoglobin 29, Mean Corpuscular H emoglobin Concent 32, Red Cell Distribution Width 17.6H, Platelet Count 332, Mean Platelet Volume 9.7, Neutrophils (%) (Auto) 59, Lymphocytes (%) (Auto) 25, Monocytes (%) (Auto) 12, Eosinophils (%) (Auto) 4, Basophils (%) (Auto) 0, Paramjit trophils # (Auto) 3.2, Lymphocytes # (Auto) 1.4, Monocytes # (Auto) 0.6, Eosinophils # (Auto) 0.2, Basophils # (Auto) 0.0, Sodium Level 141, Potassium Level 5.2H, Chloride Level 109H, Carbon Dioxide Level 26, Anion Gap 6, Blood Urea Nitrogen 8, Creatinine 0.81, Estimat Glomerular Filtration Rate > 60, BUN/Creatinine Ratio 10, Glucose Level 87, Calcium Level 8.4L, Corrected Calcium 8.9, Total Bilirubin 0.6, Aspartate Amino Transf (AST/SGOT) 699H, Alanine Aminotransferase (ALT/SGPT) 515#H, Alkaline Phosphatase 196H, Total Protein 5.8L , Albumin 3.4, Lipase 73, Hepatitis A IgM Antibody TNP:Duplicate Test, Hepatitis B Surface Antigen TNP:Duplicate Test, Hepatitis B Core IgM Antibody TNP:Duplicate Test, Hepatitis C Antibody TNP:Duplicate Test 03/12/20 12:07: Triglycerides Level 136, Cholesterol Level 174, LDL Cholesterol Direct 117, VLDL Cholesterol 27, HDL Cholesterol 49, Amylase Level 65 Assessment/Plan Assessment/Plan Assessment/Plan 1. Acute pancreatitis - improving; etiology unclear 2. Elevated LFTs - Lipid panel, hepatitis panel, HIV are all pending. 3. Hyperkalemia Pt will not need any surgery for the Pancreatitis and it seems to be better; she can start on clears and advance as tolerated. Pt may also benefit from some Miralax. Monitor LFT's to make sure they are trending down. Potassium in IV discontinued. I will sign off and can see again if needed. Clinical Quality Measures DVT/VTE Risk/Contraindication: Risk Factor Score Per Nursin RFS Level Per Nursing on Admit: 2=Moderate ABELARDO FIELDS DO Mar 12, 2020 16:35
--- NOTE | 2020-03-12 16:50 | Diagnostic Imaging Report ---
INDICATION: Pancreatitis and nausea. PROCEDURE: Ultrasound abdomen complete. TECHNIQUE: Multiple Real-time grayscale images were obtained of the abdomen in various projections. FINDINGS: The liver is normal in size at 17 cm. No discrete liver mass is detected. The portal vein is patent and shows normal direction of flow. The gallbladder is surgically absent. No biliary ductal dilatation is seen. The pancreas is poorly visualized due to overlying bowel gas. The spleen is normal in size at 10.7 cm. The aorta is largely obscured. The IVC is obscured. Both kidneys are of normal size with normal cortical thickness and echogenicity. No calculi are seen. There is no hydronephrosis. IMPRESSION: Unremarkable abdominal ultrasound. Dictated by: Dictated on workstation # [id number]
--- NOTE | 2020-03-12 16:56 | Diagnostic Imaging Report ---
PROCEDURE: US Non-ob pelvis comp/trans. TECHNIQUE: Multiple realtime grayscale images were obtained of the pelvis in various projections endovaginally. Transabdominal imaging was also performed. INDICATION: Vaginal bleeding. Embedded IUD. COMPARISON: CT scan of 03/11/2020. FINDINGS: Uterus measures 9.4 x 5.4 x 6 cm. A definite IUD is not identified. Echogenic structures that were noted within the fundus bilaterally most likely represent Essure closure devices within the fallopian tubes. No evidence of a echogenic structure within the uterine cavity. Endometrial stripe measures 5 mm. The right ovary measures 4 x 2.3 x 2.7 cm. Left ovary measures 3.7 x 2.7 x 2.7 cm. There is normal blood flow to both ovaries with no free fluid. IMPRESSION: 1. Echogenic structures are noted bilaterally along the cornu of the uterus. These appear to correlate with Essure closure device of the fallopian tube. Images of the endometrial cavity show no evidence of a definite IUD. Dictated by: Dictated on workstation # [id number]
[2020-03-12 20:13] VITALS: BP 120/66
--- NOTE | 2020-03-12 20:24 | Diagnostic Imaging Report ---
INDICATION: Generalized abdominal pain COMPARISON: None. FINDINGS: KUB and upright views of the abdomen demonstrate mild constipation without overt obstruction. There is no free air. Cholecystectomy clips are seen in the right upper quadrant. Essure tubal closure devices are seen in the pelvis. Osseous structures normal. IMPRESSION: Mild constipation without obstruction, ileus or free air. Dictated by: Dictated on workstation # [id number]
[2020-03-12] MEDS ORDERED: polyethylene glycoL POWDER 17 GM (MIRALAX) PACK PO PRN (20:30)
[2020-03-12] MEDS: ENOXAPARIN 40 MG/0.4 ML (LOVENOX) SYR SC SCH (20:47)
[2020-03-12 23:34] LABS: HEPATITIS C ANTIBODY C Non-Reactive (Non-Reactive)
[2020-03-13] VITALS: BP 108/70
[2020-03-13 04:00] VITALS: BP_SYST 108; BP_SYST 99; BP_DIAS 69; BP_DIAS 70
[2020-03-13] MEDS: LACTATED RINGERS 1,000 ML IV SCH ×3 (05:24→19:43)
[2020-03-13 06:30] LABS: ALBUMIN 3.3 GM/DL (3.2-4.5); CHLORIDE 108 MMOL/L (98-107); POTASSIUM 4.7 MMOL/L (3.6-5.0); SODIUM 140 MMOL/L (135-145)
[2020-03-13 06:31] LABS: CALCIUM 8.5 MG/DL (8.5-10.1)
[2020-03-13 06:33] LABS: GLUCOSE 81 MG/DL (70-105); TOTAL PROTEIN 5.7 GM/DL (6.4-8.2)
[2020-03-13 06:34] LABS: CARBON DIOXIDE 25 MMOL/L (21-32)
[2020-03-13 06:35] LABS: BILIRUBIN,TOTAL 0.9 MG/DL (0.1-1.0)
[2020-03-13 06:36] LABS: ALKALINE PHOSPHATASE 171 U/L (40-136); CREATININE SERUM 0.82 MG/DL (0.60-1.30); GFR ESTIMATED > 60
[2020-03-13 06:37] LABS: BUN/CREATININE RATIO 9
[2020-03-13 06:39] LABS: ALANINE AMINOTRANSFERASE 279 U/L (0-55)
[2020-03-13 08:00] VITALS: BP 102/73
--- NOTE | 2020-03-13 08:51 | Progress Note ---
Standard Progress Note Progress Notes/Assess & Plan Date Seen by a Provider: Mar 13, 2020 Time Seen by a Provider: 08:30 Progress/Assessment & Plan Patient reports tolerated clear liquids, but [facility]. [place], [place] NAME: JAVY OSUNA [facility] REC#: [id number] PT STATUS: ADM IN : 1970 PHYSICIAN: YUMIKO SAENZ MD ADMIT DATE: 03/11/20 Signed Date of Exam:03/11/20 CT ABDOMEN/PELVIS W PROCEDURE: CT abdomen and pelvis with contrast. TECHNIQUE: Multiple contiguous axial images were obtained through the abdomen and pelvis after administration of intravenous contrast. Auto Exposure Controls were utilized during the CT exam to meet ALARA standards for radiation dose reduction. INDICATION: Pain, vaginal bleeding COMPARISON: None available FINDINGS: Visualized lung bases are clear. Tiny hiatal hernia. Cholecystectomy. Minimal intrahepatic biliary dilatation is noted, likely secondary to reservoir effect status post cholecystectomy. The spleen is unremarkable. The adrenal glands are unremarkable. The pancreas is unremarkable. Postsurgical changes of a gastric bypass are noted. The bilateral kidneys are unremarkable. No aneurysmal dilatation of the abdominal aorta. The urinary bladder is unremarkable. Bilateral Essure devices are in place. The uterus is mildly prominent in size without focal mass lesion. Adnexal structures are unremarkable for age. Loops of small bowel near the anastomosis within the left upper abdomen are at the upper limits of normal in size measuring up to 2.7 cm. However, there does appear to be fecalization of small bowel contents within the left abdomen as well as within the terminal ileum. No significant adenopathy, free air, or free fluid within the abdomen or pelvis. Grade 1 anterolisthesis of L5 on S1 secondary to bilateral pars intra-articularis defects of L5. No acute osseous abnormality. IMPRESSION: Fecalization of small bowel contents within the left abdomen as well as within the terminal ileum. This may relate to underlying hypoperistalsis or low-grade ileus. No abnormally dilated loops of bowel. Postsurgical changes of a gastric bypass. Grade 1 anterolisthesis of L5 on S1 secondary to bilateral pars intra-articularis defects of L5. Mild intrahepatic biliary dilatation, favored to relate to reservoir effect status post cholecystectomy. Tiny hiatal hernia. Additional findings as described above. Dictated by: Dictated on workstation # [id number] Dict: 03/11/201941 Trans: 03/11/202133 [facility] [id number] Interpreted by: MADDI JEAN BAPTISTE MD Electronically signed by: MADDI JEAN BAPTISTE MD 03/11/204 [place], [place] NAME: JAVY OSUNA MED REC#: [id number] PT STATUS: ADM IN : 1970 PHYSICIAN: KIANNA SHINE DO ADMIT DATE: 03/11/20 Draft Date of Exam:03/12/20 US NON OB PELVIS COMP/TRANSVAG PROCEDURE: US Non-ob pelvis comp/trans. TECHNIQUE: Multiple realtime grayscale images were obtained of the pelvis in various projections endovaginally. Transabdominal imaging was also performed. INDICATION: Vaginal bleeding. Embedded IUD. COMPARISON: CT scan of 03/11/2020. FINDINGS: Uterus measures 9.4 x 5.4 x 6 cm. A definite IUD is not identified. Echogenic structures that were noted within the fundus bilaterally most likely represent Essure closure devices within the fallopian tubes. No evidence of a echogenic structure within the uterine cavity. Endometrial stripe measures 5 mm. The right ovary measures 4 x 2.3 x 2.7 cm. Left ovary measures 3.7 x 2.7 x 2.7 cm. There is normal blood flow to both ovaries with no free fluid. IMPRESSION: 1. Echogenic structures are noted bilaterally along the cornu of the uterus. These appear to correlate with Essure closure device of the fallopian tube. Images of the endometrial cavity show no evidence of a definite IUD. Dictated on workstation # [id number] Dict: 03/12/20 1639 Trans: 03/12/20 1656 [facility] [id number] Interpreted by: ABELARDO BARRON MD Electronically signed by: SEQUATCHIE [place] NAME: JAVY OSUNA MED REC#: [id number] PT STATUS: ADM IN : 1970 PHYSICIAN: KIANNA SHINE DO ADMIT DATE: 03/11/20 Signed Date of Exam:03/12/20 US ABDOMEN COMPLETE [id number] INDICATION: Pancreatitis and nausea. PROCEDURE: Ultrasound abdomen complete. TECHNIQUE: Multiple Real-time grayscale images were obtained of the abdomen in various projections. FINDINGS: The liver is normal in size at 17 cm. No discrete liver mass is detected. The portal vein is patent and shows normal direction of flow. The gallbladder is surgically absent. No biliary ductal dilatation is seen. The pancreas is poorly visualized due to overlying bowel gas. The spleen is normal in size at 10.7 cm. The aorta is largely obscured. The IVC is obscured. Both kidneys are of normal size with normal cortical thickness and echogenicity. No calculi are seen. There is no hydronephrosis. IMPRESSION: Unremarkable abdominal ultrasound. Dictated by: Dictated on workstation # [id number] Dict: 03/12/20 1646 Trans: 03/12/201832 [id number] Interpreted by: GISSELLE GARCIA MD Electronically signed by: GISSELLE GARCIA MD 03/12/201832 [facility]. [place], [place] NAME: JAVY OSUNA [facility] REC#: [id number] PT STATUS: ADM IN : 1970 PHYSICIAN: KIANNA SHINE DO ADMIT DATE: 03/11/20 Signed Date of Exam:03/12/20 ABDOMEN, FLAT & UPRIGHT/DECUB INDICATION: Generalized abdominal pain COMPARISON: None. FINDINGS: KUB and upright views of the abdomen demonstrate mild constipation without overt obstruction. There is no free air. Cholecystectomy clips are seen in the right upper quadrant. Essure tubal closure devices are seen in the pelvis. Osseous structures normal. IMPRESSION: Mild constipation without obstruction, ileus or free air. Dictated by: Dictated on workstation # [id number] Dict: 03/12/202010 Trans: 03/12/202099 [facility] [id number] Interpreted by: GRAHAM KIRKPATRICK Electronically signed by: GRAHAM KIRKPATRICK 03/12/202099 Final Diagnosis 1. Menometrorrhagia 2. IUD misplaced (extruded) 3. history of anemia 4. acute pancreatitis and hepatitis, etiology unknown KIANNA SHINE DO Mar 13, 2020 08:51
[2020-03-13] MEDS: FAMOTIDINE 20MG/2ML IV (PEPCID) IV SCH ×2 (09:14→19:37)
[2020-03-13] MEDS: medroxyPROGESTERone 10 MG (PROVERA) TAB PO SCH (09:14)
[2020-03-13] MEDS: HYDROmorphone 2 MG/ML VIAL (DILAUDID) IV PRN ×2 (09:14→13:38)
[2020-03-13] MEDS: LEVOTHYROXINE 112 MCG (LEVOTHROID) TAB PO SCH (10:34)
[2020-03-13] MEDS: FLUoxetine HCL 20 MG (PROzac) CAP PO SCH (10:35)
[2020-03-13 12:00] VITALS: BP 110/78
[2020-03-13 16:00] VITALS: BP 115/72
--- NOTE | 2020-03-13 16:17 | Progress Note - Hospitalist ---
Subjective HPI/CC On Admission Date Seen by Provider: Mar 13, 2020 Time Seen by Provider: 09:35 [place] Cazares is a 49-year-old female with past medical history of abnormal uterine bleeding, hypothyroidism, depression, who presented with epigastric abdominal pain. She reports that the pain is sharp and severe and radiates through to her back. She reports nausea but no vomiting. She denies any fevers or chills. She denies any diarrhea. She denies any shortness of breath or cough. She denies any chest pain. She has been having abnormal uterine bleeding. She is scheduled to have a hysterectomy next week. She denies any alcohol use. She denies any illicit drug use. She denies any excessive Tylenol use. She has had her gallbladder removed. She also has a history of gastric bypass. Subjective/Events-last exam She continues to have abdominal pain. She had clear liquids this morning and has had a lot of diarrhea since then. She denies any fevers or chills. She denies any shortness of breath or cough. She denies any chest pain. She denies any nausea or vomiting. Objective Exam Vital Signs Vital Signs Date Time Temp Pulse Resp B/P (MAP) Pulse Ox O2 Delivery O2 Flow Rate FiO2 03/13/20 13:38 36.9 03/13/20 12:00 60 20 110/78 (89) 95 Room Air Capillary Refill : Less Than 3 Seconds General Appearance: No Apparent Distress, Obese Respiratory: Lungs Clear, Normal Breath Sounds, No Respiratory Distress Cardiovascular: Regular Rate, Rhythm, No Edema, No Murmur Gastrointestinal: Normal Bowel Sounds, Soft; No Distended, No Guarding; Tenderness Extremity: Normal Inspection, Non Tender, No Pedal Edema Neurologic/Psychiatric: Alert, Oriented x3, No Motor/Sensory Deficits, Normal M ood/Affect Skin: Normal Color, Warm/Dry Results/Procedures Lab Laboratory Tests 03/13/20 06:09 Patient resulted labs reviewed. Imaging: Reviewed Imaging Report Assessment/Plan Assessment and Plan Assess & Plan/Chief Complaint Acute pancreatitis Elevated LFTs Constipation Epigastric pain and elevated lipase CT abdomen showed normal pancreas, large stool burden Ultrasound unremarkable LFTs trending down Hepatitis panel and HIV negative Advanced to clears Continue IV fluids Continue bowel regimen Abnormal uterine bleeding S[employer] CLE[employer]ER consulted, appreciate assistance Continue medroxyprogesterone Hypothyroidism Depression Continue home meds DVT prophylaxis: Lovenox Diagnosis/Problems Diagnosis/Problems (1) Pancreatitis Status: Acute Qualifiers: Chronicity: acute Pancreatitis type: unspecified pancreatitis type Acute pancreatitis complication: no infection or necrosis Qualified Codes: K85.90 - Acute pancreatitis without necrosis or infection, unspecified (2) Elevated LFTs Status: Acute (3) Hypothyroidism Status: Chronic (4) Depression Status: Chronic Clinical Quality Measures DVT/VTE Risk/Contraindication: Risk Factor Score Per Nursin RFS Level Per Nursing on Admit: 2=Moderate ROSEMARY SHERMAN MD Mar 13, 2020 16:17
[2020-03-13] MEDS: ENOXAPARIN 40 MG/0.4 ML (LOVENOX) SYR SC SCH (19:37)
[2020-03-13 20:35] VITALS: BP 96/65
[2020-03-14 00:34] VITALS: BP 102/67
[2020-03-14] MEDS: LACTATED RINGERS 1,000 ML IV SCH (03:20)
[2020-03-14 05:25] LABS: ALBUMIN 3.5 GM/DL (3.2-4.5); CHLORIDE 107 MMOL/L (98-107); SODIUM 139 MMOL/L (135-145)
[2020-03-14 05:26] LABS: CALCIUM 8.7 MG/DL (8.5-10.1)
[2020-03-14 05:27] LABS: GLUCOSE 80 MG/DL (70-105)
[2020-03-14 05:29] LABS: BILIRUBIN,TOTAL 0.7 MG/DL (0.1-1.0); CARBON DIOXIDE 22 MMOL/L (21-32)
[2020-03-14 05:31] LABS: ALKALINE PHOSPHATASE 163 U/L (40-136); CREATININE SERUM 0.79 MG/DL (0.60-1.30); GFR ESTIMATED > 60
[2020-03-14 05:32] LABS: BUN/CREATININE RATIO 6
[2020-03-14 05:34] LABS: ALANINE AMINOTRANSFERASE 195 U/L (0-55)
[2020-03-14] MEDS: LEVOTHYROXINE 112 MCG (LEVOTHROID) TAB PO SCH (06:21)
[2020-03-14 08:00] VITALS: BP 91/66
[2020-03-14] MEDS: FLUoxetine HCL 20 MG (PROzac) CAP PO SCH (08:36)
[2020-03-14] MEDS: FAMOTIDINE 20MG/2ML IV (PEPCID) IV SCH (08:36)
[2020-03-14] MEDS: medroxyPROGESTERone 10 MG (PROVERA) TAB PO SCH (08:36)
--- NOTE | 2020-03-14 08:37 | Progress Note ---
Subjective Date Seen by a Provider: Mar 14, 2020 Time Seen by a Provider: 08:36 Subjective/Events-last exam Laboratory Tests Test 03/11/20 18:56 03/11/20 19:50 03/12/20 05:35 03/12/20 12:07 Range/Units White Blood Count 13.6 H 5.4 4.3-11.0 10^3/uL Red Blood Count 4.77 4.37 4.35-5.85 10^6/uL Hemoglobin 14.0 12.8 11.5-16.0 G/DL Hematocrit 43 40 35-52 % Mean Corpuscular Volume 90 91 80-99 FL Mean Corpuscular Hemoglobin 29 29 25-34 PG Mean Corpuscular Hemoglobin Concent 33 32 32-36 G/DL Red Cell Distribution Width 17.5 H 17.6 H 10.0-14.5 % Platelet Count 373 332 130-400 10^3/uL Mean Platelet Volume 9.6 9.7 7.4-10.4 FL Neutrophils (%) (Auto) 74 59 42-75 % Lymphocytes (%) (Auto) 14 25 12-44 % Monocytes (%) (Auto) 10 12 0-12 % Eosinophils (%) (Auto) 2 4 0-10 % Basophils (%) (Auto) 0 0 0-10 % Neutrophils # (Auto) 10.0 H 3.2 1.8-7.8 X 10^3 Lymphocytes # (Auto) 1.9 1.4 1.0-4.0 X 10^3 Monocytes # (Auto) 1.3 H 0.6 0.0-1.0 X 10^3 Eosinophils # (Auto) 0.3 0.2 0.0-0.3 10^3/uL Basophils # (Auto) 0.0 0.0 0.0-0.1 10^3/uL Neutrophils % (Manual) 75 % Lymphocytes % (Manual) 14 % Monocytes % (Manual) 9 % Eosinophils % (Manual) 2 % Anisocytosis SLIGHT Sodium Level 136 141 135-145 MMOL/L Potassium Level 4.3 5.2 H 3.6-5.0 MMOL/L Chloride Level 103 109 H 98-107 MMOL/L Carbon Dioxide Level 22 26 21-32 MMOL/L Anion Gap 11 6 5-14 MMOL/L Blood Urea Nitrogen 15 8 7-18 MG/DL Creatinine 0.84 0.81 0.60-1.30 MG/DL Estimat Glomerular Filtration Rate > 60 > 60 BUN/Creatinine Ratio 18 10 Glucose Level 97 87 70-105 MG/DL Calcium Level 8.8 8.4 L 8.5-10.1 MG/DL Corrected Calcium 8.9 8.9 8.5-10.1 MG/DL Total Bilirubin 0.5 0.6 0.1-1.0 MG/DL Aspartate Amino Transf (AST/SGOT) 239 H 699 H 5-34 U/L Alanine Aminotransferase (ALT/SGPT) 99 H 515 #H 0-55 U/L Alkaline Phosphatase 104 196 H 40-136 U/L C-Reactive Protein High Sensitivity 0.07 0.00-0.50 MG/DL Total Protein 6.6 5.8 L 6.4-8.2 GM/DL Albumin 3.9 3.4 3.2-4.5 GM/DL Lipase 483 H 73 8-78 U/L Thyroid Stimulating Hormone (TSH) 10.60 H 0.35-4.94 UIU/ML Free Thyroxine 0.95 0.70-1.48 NG/DL Serum Test, Qualitative NEGATIVE NEGATIVE Urine Color YELLOW Urine Clarity CLEAR Urine pH 5.5 5-9 Urine Specific [place] 1.010 L 1.016-1.022 Urine Protein NEGATIVE NEGATIVE Urine Glucose (UA) NEGATIVE NEGATIVE Urine Ketones NEGATIVE NEGATIVE Urine Nitrite NEGATIVE NEGATIVE Urine Bilirubin NEGATIVE NEGATIVE Urine Urobilinogen 2.0 < = 1.0 MG/DL Urine Leukocyte Esterase NEGATIVE NEGATIVE Urine RBC (Auto) 3+ H NEGATIVE Urine RBC 0-2 /HPF Urine WBC RARE /HPF Urine Squamous Epithelial Cells 0-2 /HPF Urine Crystals NONE /LPF Urine Bacteria TRACE /HPF Urine Casts NONE /LPF Urine Mucus NEGATIVE /LPF Urine Culture Indicated NO Hepatitis A IgM Antibody TNP:Duplicate Test Hepatitis B Surface Antigen TNP:Duplicate Test Hepatitis B Core IgM Antibody TNP:Duplicate Test Hepatitis C Antibody TNP:Duplicate Test HIV (1&2) Ag and Ab Screen Referral Non-Reactive Non-Reactive Triglycerides Level 136 <150 MG/DL Cholesterol Level 174 < 200 MG/DL LDL Cholesterol Direct 117 1-129 MG/DL VLDL Cholesterol 27 5-40 MG/DL HDL Cholesterol 49 40-60 MG/DL Amylase Level 65 25-125 U/L Test 03/13/20 06:09 03/14/20 04:53 Range/Units Sodium Level 140 139 135-145 MMOL/L Potassium Level 4.7 4.0 3.6-5.0 MMOL/L Chloride Level 108 H 107 98-107 MMOL/L Carbon Dioxide Level 25 22 21-32 MMOL/L Anion Gap 7 10 5-14 MMOL/L Blood Urea Nitrogen 7 5 L 7-18 MG/DL Creatinine 0.82 0.79 0.60-1.30 MG/DL Estimat Glomerular Filtration Rate > 60 > 60 BUN/Creatinine Ratio 9 6 Glucose Level 81 80 70-105 MG/DL Calcium Level 8.5 8.7 8.5-10.1 MG/DL Corrected Calcium 9.1 9.1 8.5-10.1 MG/DL Total Bilirubin 0.9 0.7 0.1-1.0 MG/DL Aspartate Amino Transf (AST/SGOT) 171 H 79 H 5-34 U/L Alanine Aminotransferase (ALT/SGPT) 279 H 195 H 0-55 U/L Alkaline Phosphatase 171 H 163 H 40-136 U/L Total Protein 5.7 L 6.0 L 6.4-8.2 GM/DL Albumin 3.3 3.5 3.2-4.5 GM/DL Objective Exam Vital Signs Date Time Temp Pulse Resp B/P (MAP) Pulse Ox O2 Delivery O2 Flow Rate FiO2 03/14/20 08:00 Room Air 03/14/20 00:34 36.6 62 16 102/67 (79) 95 Room Air 03/13/20 20:35 37.0 56 17 96/65 (75) 94 Room Air 03/13/20 19:35 Room Air 03/13/20 16:00 36.6 76 20 115/72 (86) 96 Room Air 03/13/20 14:10 36.9 03/13/20 13:38 36.9 03/13/20 12:00 36.9 60 20 110/78 (89) 95 Room Air 03/13/20 09:50 36.9 I & O 03/14/20 07:00 Intake Total 6052 ml Output Total 12 ml Balance 6040 ml Capillary Refill : Less Than 3 Seconds Results Lab Laboratory Tests 03/14/20 04:53: Sodium Level 139, Potassium Level 4.0, Chloride Level 107, Carbon Dioxide Level 22, Anion Gap 10, Blood Urea Nitrogen 5L, Creatinine 0.79, Estimat Glomerular Filtration Rate > 60, BUN/Creatinine Ratio 6, Glucose Level 80, Calcium Level 8.7, Corrected Calcium 9.1, Total Bilirubin 0.7, Aspartate Amino Transf (AST/SGOT) 79H, Alanine Aminotransferase (ALT/SGPT) 195H, Alkaline Phosphatase 163H, Total Protein 6.0L, Albumin 3.5 Assessment/Plan Assessment/Plan Assess & Plan/Chief Complaint 1. acute pancreatitis, improving; etiology unclear 2. Elevated liver function tests, could be due to the pancreatitis or the Tylenol dosage. abdominal ultrasound is pending. Lipid panel, hepatitis panel, HIV are all pending. 3. Menometrorrhagia - this is not a new problem and the treatment for acute menorrhagia would be contraindicated with elevated liver functions in (IV estrogen). She has already received by mouth Provera and are ready has a progestin containing IUD. Depo-Provera would not stop the bleeding acutely. So we will wait for the records from [place] and from Dr. Zuniga office to see what already has been done has been done. But I have ordered a pelvic ultrasound. 4. the patient had a hysterectomy right now. She states they just want this all done. I did discuss with her that with her chemistry panel is not feasible to do a hysterectomy at this point. But we could offer a robotic hysterectomy with possible oophorectomy at a later date. She is very scheduled for laparoscopic hysterectomy in [place]. in addition she is unsure about removing ovaries. The decision about hormone replacement may also be complicated by the elevated liver functions. If this is an acute process then she may be able to take estrogen at a later date, but estrogen is contraindicated in acute and chronic liver disease. 5. I discussed this all with her. At this point we will await the pending labs and the pending ultrasound reports and also pending records from her previous providers. I will come back to speak with the patient once the results of the ultrasounds are available Thank you for this consultation. Please on hesitate to call for further questions or concerns.[phone] Clinical Quality Measures DVT/VTE Risk/Contraindication: Risk Factor Score Per Nursin RFS Level Per Nursing on Admit: 2=Moderate KIANNA SHINE DO Mar 14, 2020 08:37
--- NOTE | 2020-03-14 08:46 | Discharge Inst-Women's Service ---
Discharge Inst-Women's Serv Depart Medication/Instructions New, Converted or Re-Newed RX: RX Given to Pt/Family (If you choose to have surgery at [facility], we will plan this on 03/26/2020 assuming that we can get insurance prior authorization prior to then. We would do a total robotic hysterectomy, bilateral salpingectomy, possible oophorectomy, lysis of adhesions, anterior coporrhaphy (cystocele) and pubovaginal sling (for the incontinence). Preop will be scheduled. Your labs need to have normalized before anesthesia will want to put you to sleep. We will schedule something the week before. You will need to have covid testing before the scheduled surgery. And then self quarantine before surgery. You will have a bowel prep due to the possibility of adhesion. BC of the gastric bypass, we will do a gentle prep. You will get instructions when you have your preoperative visit. ) Instructions Rest of DC per Dr. Powell. Continue provera/medroxyprogesterone until surgery. Hold 24 hours prior, hold any aspirin or NSAIDs (ibuprofen) for 5 days prior to surgery. Bowel prep prior to surgery (will get instructions), NPO after midnight on Mondya 03/26. Liquid diet the 03/26 (does not need to be clear liquids). Final Diagnosis menometrorrhagia lost/extruded IUD genital prolapse/cystocele/stress incontinence Problems Reviewed?: Yes Consults/Follow Up Additional Follow Up: Yes (Schedule follow up with me/preop on March 21 or WednesdayMarch 22. Will need covid drivethrough testing that day (can do before the visit) and labs. ) KIANNA SHINE DO Mar 14, 2020 08:44
[2020-03-14] MEDS ORDERED: SIMETHICONE 80 MG (MYLICON) CHEW PO PRN (09:00)
--- NOTE | 2020-03-14 09:13 | Physician Query Clarification ---
PQ-Uncertain Diagnosis Admission/Discharge Admission Date: Mar 11, 2020 at 20:27 Discharge Date: The medical record reflects the following clinical scenario: Dr. Sherman, History/Risk Factors: Acute pancreatitis Left upper quadrant abdominal pain and nausea Elevated LFTs Clinical Findings: ED progress note: Patient was found to have pancreatitis with elevated lipase and probable ileus on CT scan. Case was reviewed with Dr. Sena and with patient. 03/11 CT impression: Fecalization of small bowel contents within the left abdomen as well as within the terminal ileum. This may relate to underlying hypoperistalsis or low-grade ileus. No abnormally dilated loops of bowel. Treatment: Bowel rest, IV fluids, Fentanyl and Zofran. Question: Is Ileus a clinically valid diagnosis? Ileus was documented in the ED record, Dr. Lundberg and Dr. Garcia's consult with no further documentation in the medical record. Please document a response in Progress Note or Discharge Summary. 1. Yes, clinically valid, condition resolved. 2. No, condition ruled out. 3. Other, with explanation of clinical findings. 4. Undetermined, no explanation for clinical findings. PHYSICIAN RESPONSE Diagnosis clinically valid: Yes, Conditon resolved Please remember a lack of response to the above will prompt a phone page by CDI/Coding staff. In responding to this query, please exercise your independent professional judgment. The purpose of this communication is to more accurately reflect the complexity of your patients condition. The fact that a question is asked does not imply that any particular answer is desired or expected. Thank you for your timely response to this clarification. Requestors name: Vivian Jeffery [facility] Phone # ext [phone] or [phone] THIS PHYSICIAN QUERY FORM IS A PERMANENT PART OF THE MEDICAL RECORD VIVIAN JEFFERY Mar 14, 2020 09:13 ROSEMARY SHERMAN MD Mar 14, 2020 09:59
[2020-03-14] MEDS ORDERED: OXYC5CAP18 PO (09:44)
[2020-03-14 10:24] VITALS: BP 91/66
--- NOTE | 2020-03-16 12:52 | Discharge Summary ---
Discharge Summary Hospital Course Was the Problem List Reviewed?: Yes Problems/Dx: (1) Pancreatitis Status: Acute Qualifiers: Qualified Codes: K85.90 - Acute pancreatitis without necrosis or infection, unspecified (2) Elevated LFTs Status: Acute (3) Hypothyroidism Status: Chronic (4) Depression Status: Chronic Hospital Course Date of Admission: Mar 11, 2020 at 20:27 Admission Diagnosis : acute pancreatitis Family Physician/Provider: Date of Discharge: 03/16/20 Discharge Diagnosis: acute pancreatitis Hospital Course: [place] Cazares is a 49-year-old female who presented with epigastric abdominal pain and was admitted with pancreatitis. She was treated with bowel rest, IV fluids, and pain medications and her symptoms improved. Her course was complicated by elevated liver function tests with trended down toward normal prior to discharge. She has a history of a cholecystectomy. She is a nondrinker. Her acute pancreatitis was thought to be due to a common bile duct stone though this was not visualized on CT or ultrasound imaging. Her course was also complicated by abnormal uterine bleeding which was a previous issue. She is scheduled to undergo hysterectomy as an outpatient in a week or 2. [facility] [employer] was consulted and assisted with her care. She was also found to have an elevated TSH level. She is taking levothyroxine. She should have a repeat TSH level checked in about a month with her PCP. She should follow-up with [employer] as scheduled. She was discharged home in stable condition. Labs and Pending Lab Test: Home Meds Active Oxycodone HCl 5 Mg Capsule 5 Mg PO Q6H PRN 7 Days Reported Mefenamic Acid 250 Mg Capsule 250-500 Mg PO Q6H PRN PT HAS NOT TAKEN A DOSE OF THIS MEDICATION DIRECTIONS: 2 TABS NOW THEN 1 TAB EVERY 6 HOURS Iron (Ferrous Sulfate) 325 Mg Tablet 325 Mg PO DAILY Tylenol Extra Strength (Acetaminophen) 500 Mg Tablet 1,000 Mg PO Q8H PRN Euthyrox (Levothyroxine Sodium) 112 Mcg Tablet 112 Mcg PO DAILY Fluoxetine HCl 40 Mg Capsule 40 Mg PO DAILY Medroxyprogesterone Acetate 10 Mg Tablet 10 Mg PO DAILY 14 Days Cyanocobalamin Injection (Cyanocobalamin) 1,000 Mcg/Ml Inj 1,000 Mcg IJ WEEKLY Assessment/Pt Instructions take medications as prescribed. Follow-up with your primary care physician. Follow-up with [employer]. Discharge Planning: <30 minutes discharge planning Discharge Instructions Discharge Diet: No Restrictions Activity as Tolerated: Yes Discharge Physical Examination Vital Signs Vital Signs Date Time Temp Pulse Resp B/P (MAP) Pulse Ox O2 Delivery O2 Flow Rate FiO2 03/14/20 10:24 36.1 60 18 91/66 96 Room Air General Appearance: No Apparent Distress, Obese HEENT: PERRL/EOMI, Pharynx Normal Respiratory: Lungs Clear, Normal Breath Sounds, No Respiratory Distress Cardiovascular: Regular Rate, Rhythm, No Edema, No Murmur Gastrointestinal: Normal Bowel Sounds, Non Tender, Soft Extremity: Normal Inspection, Non Tender, No Pedal Edema Skin: Normal Color, Warm/Dry Neurologic/Psychiatric: Alert, Oriented x3, No Motor/Sensory Deficits, Normal Mood/Affect Allergies: Coded Allergies: No Known Drug Allergies (Unverified , 03/11/20) Discharge Summary Date of Admission Mar 11, 2020 at 20:27 Date of Discharge Mar 14, 2020 at 10:31 Discharge Date: Mar 14, 2020 Discharge Time: 10:31 Admission Diagnosis Acute pancreatitis Consults/Procedures Consulations [employer] Discharge Diagnosis Acute pancreatitis (1) Pancreatitis Status: Acute Qualifiers: Qualified Codes: K85.90 - Acute pancreatitis without necrosis or infection, unspecified (2) Elevated LFTs Status: Acute (3) Hypothyroidism Status: Chronic (4) Depression Status: Chronic Clinical Quality Measures DVT/VTE Risk/Contraindication: Risk Factor Score Per Nursin RFS Level Per Nursing on Admit: 2=Moderate ROSEMARY SHERMAN MD Mar 16, 2020 12:52
== END 2020-03-14 10:31 | disposition home or self-care (01) | DRG 439 ==
LOC: EDUNIT# 18:25 → ER 18:28 → 4TH 20:27
PROVIDERS: ADMIT Internal Medicine; ATTEND Internal Medicine
DX: K85.90 Acute pancreatitis without necrosis or infection, unspecified (principal); K56.7 Ileus, unspecified; K75.9 Inflammatory liver disease, unspecified; N92.1 Excessive and frequent menstruation with irregular cycle; T83.32XA Displacement of intrauterine contraceptive device, initial encounter; K59.00 Constipation, unspecified; R19.7 Diarrhea, unspecified; E87.5 Hyperkalemia; E66.9 Obesity, unspecified; E03.9 Hypothyroidism, unspecified; F32.9 Major depressive disorder, single episode, unspecified; Z68.36 Body mass index [BMI] 36.0-36.9, adult; Z98.84 Bariatric surgery status
CPT/HCPCS: 36415; 74019; 74177; 76700; 76830; 76856; 80053; 80061; 80074; 81000; 82150; 83690; 84439; 84443; 84703; 85007; 85025; 85027; 86141; 86703

== ENCOUNTER 2020-03-21 07:22 | Outpatient (RCR) | payer OTHER ==
[~2020-03-21] VITALS: Ht 165.1 cm; Wt 94.9 kg
[~2020-03-21 07:22] MED LIST changes: -LACTATED RINGERS 1,000 ML IV PRN; -ceFAZolin INJECTION 1,000 MG in WATER (STERILE) FOR INJECTION 10 ML IV ONE; -metroNIDAZOLE 500MG/100ML IVPB 100 ML IV ONE
[2020-03-21 09:16] VITALS: BP 109/70
[2020-03-21 09:39] LABS: BILIRUBIN,URINE NEGATIVE (NEGATIVE); CLARITY,URINE CLEAR; COLOR,URINE YELLOW; GLUCOSE, URINE (UA) NEGATIVE (NEGATIVE); KETONES,URINE NEGATIVE (NEGATIVE); LEUKOCYTE ESTERASE ,URINE NEGATIVE (NEGATIVE); NITRITE,URINE NEGATIVE (NEGATIVE); PROTEIN,URINE NEGATIVE (NEGATIVE)
[2020-03-21 09:39] LABS: BASOPHILS % (AUTO) 0 % (0-10); EOSINOPHILS # (AUTO) 0.2 10^3/uL (0.0-0.3); EOSINOPHILS % (AUTO) 2 % (0-10); HEMATOCRIT 42 % (35-52); HEMOGLOBIN 13.9 G/DL (11.5-16.0); LYMPHOCYTES # (AUTO) 1.4 X 10^3 (1.0-4.0); LYMPHOCYTES % (AUTO) 18 % (12-44); MEAN CORPUSCULAR HEMOGLOBIN 30 PG (25-34); MEAN CORPUSCULAR HGB CONC 33 G/DL (32-36); MEAN CORPUSCULAR VOLUME 90 FL (80-99); MONOCYTES # (AUTO) 0.8 X 10^3 (0.0-1.0); MONOCYTES % (AUTO) 10 % (0-12); NEUTROPHILS # (AUTO) 5.3 X 10^3 (1.8-7.8); NEUTROPHILS % (AUTO) 69 % (42-75); PLATELET COUNT 407 10^3/uL (130-400); RED CELL DISTRIBUTION WIDTH 16.4 % (10.0-14.5); WHITE BLOOD COUNT 7.7 10^3/uL (4.3-11.0)
[2020-03-21 09:54] LABS: BACTERIA,URINE TRACE /HPF; WBC,URINE RARE /HPF
[2020-03-21 09:58] LABS: ALANINE AMINOTRANSFERASE 33 U/L (0-55); ALBUMIN 3.9 GM/DL (3.2-4.5); ALKALINE PHOSPHATASE 122 U/L (40-136); BILIRUBIN,TOTAL 0.6 MG/DL (0.1-1.0); BUN/CREATININE RATIO 18; CALCIUM 8.7 MG/DL (8.5-10.1); CARBON DIOXIDE 24 MMOL/L (21-32); CHLORIDE 105 MMOL/L (98-107); CREATININE SERUM 0.71 MG/DL (0.60-1.30); GFR ESTIMATED > 60; GLUCOSE 76 MG/DL (70-105); POTASSIUM 4.4 MMOL/L (3.6-5.0); SODIUM 137 MMOL/L (135-145); TOTAL PROTEIN 6.5 GM/DL (6.4-8.2)
[2020-03-27] MEDS ORDERED: HYDR2TAB6 PO (07:54)
[2020-03-27] MEDS ORDERED: ACET-93 PO (07:54)
[2020-03-27] MEDS ORDERED: DCS100C PO (07:54)
[2020-03-27] MEDS ORDERED: SIME80TA16 PO (07:57)
[2020-03-27] MEDS ORDERED: BENZ78AE2 TP (07:57)
== END 2020-03-21 10:14 | disposition home or self-care (01) ==
LOC: PREOP 07:22
PROVIDERS: ATTEND Obstetrics & Gynecology
DX: Z01.812 Encounter for preprocedural laboratory examination (principal); Z11.2 Encounter for screening for other bacterial diseases; Z20.828 Contact with and (suspected) exposure to other viral communicable diseases; N92.1 Excessive and frequent menstruation with irregular cycle; N39.3 Stress incontinence (female) (male); N81.9 Female genital prolapse, unspecified; N73.6 Female pelvic peritoneal adhesions (postinfective); D64.9 Anemia, unspecified; R74.8 Abnormal levels of other serum enzymes
CPT/HCPCS: 80053; 81000; 85025; 86850; 86900; 86901; 87081; U0002; 36415; 87635

== ENCOUNTER → 2020-03-21 | Outpatient (CLI) | payer OTHER ==
[~2020-03-21] MED LIST: ACET-2267 PO; ACET1TAB43 PO; CNC1KV IJ; FERR-84 PO; FLUO40CA PO; LACTATED RINGERS 1,000 ML IV PRN; LEVO112T68 PO; MEDR10TA9 PO; MEFE250C19 PO; OXYC5CAP18 PO; ceFAZolin INJECTION 1,000 MG in WATER (STERILE) FOR INJECTION 10 ML IV ONE; metroNIDAZOLE 500MG/100ML IVPB 100 ML IV ONE
[2020-03-21 09:56] LABS: ALBUMIN 3.9 GM/DL (3.2-4.5); BILIRUBIN,DIRECT 0.3 MG/DL (0.0-0.3); BILIRUBIN,INDIRECT 0.3 MG/DL; BILIRUBIN,TOTAL 0.6 MG/DL (0.1-1.0); TOTAL PROTEIN 6.6 GM/DL (6.4-8.2)
[2020-03-26 06:25] VITALS: BP 120/73
== END ==
LOC: SDC 09:14
PROVIDERS: ATTEND Internal Medicine
DX: R94.5 Abnormal results of liver function studies (principal)
CPT/HCPCS: 36415; 80076

== ENCOUNTER 2020-03-26 06:18 | Day surgery (SDC) | payer OTHER ==
[~2020-03-26] VITALS: Ht 165.1 cm; Wt 94.9 kg
[2020-03-26] VITALS (13 sets, daily range): BP systolic 96–120; BP diastolic 50–73
[2020-03-26] MEDS ORDERED: MIDAZOLAM 2 MG/2 ML (VERSED) VIAL ONE (06:39)
[2020-03-26] MEDS ORDERED: ONDANSETRON 4 MG/2 ML (SDV) Z0FRAN ONE (06:39)
[2020-03-26] MEDS ORDERED: SEVOFLURANE (ULTANE) 15 ML INHAL SOLN ONE ×7 (06:39→09:53)
[2020-03-26] MEDS ORDERED: LIDOCAINE PF 2% 5 ML (XYLOCAINE) VIAL ONE (06:39)
[2020-03-26] MEDS ORDERED: proPOfol 200 MG/20 ML (DIPRIVAN) VIAL IV ONE (06:39)
[2020-03-26] MEDS ORDERED: fentaNYL INJECTION 100 MCG/2 ML AMP ONE (06:40)
[2020-03-26] MEDS ORDERED: ROCURONIUM 10 MG/ML 5 ML SYRINGE IV ONE ×2 (06:40→09:01)
[2020-03-26] MEDS: LACTATED RINGERS 1,000 ML IV PRN ×4 (06:50→10:56)
[2020-03-26] MEDS ORDERED: metroNIDAZOLE 500MG/100ML IVPB 100 ML ONE (07:02)
[2020-03-26] MEDS ORDERED: WATER (STERILE) FOR INJECTION 10 ML ONE (07:02)
[2020-03-26] MEDS ORDERED: ceFAZolin INJECTION 1,000 MG ONE (07:02)
[2020-03-26] MEDS ORDERED: VASOPRESSIN INJECTION 20 UNIT/ML VIAL ONE (07:10)
[2020-03-26] MEDS ORDERED: NS (IVPB) 100 ML ONE (07:11)
[2020-03-26] MEDS ORDERED: ESTRADIOL VAGINAL CREAM 42.5 GM (ESTRACE) VG ONE (07:11)
[2020-03-26] MEDS ORDERED: BUP/EPI 0.5% 1:200,000 (SENSORCAINE) 30 ML VIAL ONE (07:11)
--- NOTE | 2020-03-26 07:29 | Progress Note-Pre Operative ---
Pre-Operative Progress Note H&P Reviewed The H&P was reviewed, patient examined and no changes noted. Patient has opted for RaTH, bilateral salpingectomy, possible oophorectomy, possible anterior posterior repair, possible pubovaginal sling. Date Seen by Provider: Mar 26, 2020 Time Seen by Provider: 07:15 Date H&P Reviewed: Mar 26, 2020 Time H&P Reviewed: 07:00 Pre-Operative Diagnosis: menorrhagia, incomplete urogenital prolapse, stress incontinence, adhesions KIANNA SHINE DO Mar 26, 2020 07:29
--- OUTSIDE RECORDS SUMMARY | 2020-03-26 07:43 | XMS REPORT | Continuity of Care Document ---
Author Organization Unknown Address Unknown Phone Unavailable Allergies Active Description Code Type Severity Reaction Onset Reported/Identified Relationship to Patient Clinical Status Yes No Known Drug Allergies [id number] Drug Allergy Unknown N/A 03/11/2020 Medications There is no data. Problems Date Dx Coded Attending Type Code Diagnosis Diagnosed By 03/14/2020 ROSEMARY SHERMAN MD, Ot E03. 9 HYPOTHYROIDISM, UNSPECIFIED 03/14/2020 ROSEMARY SHERMAN MD, Ot E66. 9 OBESITY, UNSPECIFIED 03/14/2020 ROSEMARY SHERMAN MD, Ot E87. 5 HYPERKALEMIA 03/14/2020 ROSEMARY SHERMAN MD, Ot F32. 9 MAJOR DEPRESSIVE DISORDER, SINGLE EPISOD 03/14/2020 ROSEMARY SHERMAN MD Ot K56. 7 ILEUS, UNSPECIFIED 03/14/2020 ROSEMARY SHERMAN MD, Ot K59. 00 CONSTIPATION, UNSPECIFIED 03/14/2020 ROSEMARY SHERMAN MD Ot K75. 9 INFLAMMATORY LIVER DISEASE, UNSPECIFIED 03/14/2020 ROSEMARY SHERMAN MD, Ot K85. 90 ACUTE PANCREATITIS WITHOUT NECROSIS OR I 03/14/2020 ROSEMARY SHERMAN MD Ot N92. 1 EXCESSIVE AND FREQUENT MENSTRUATION WITH 03/14/2020 ROSEMARY SHERMAN MD Ot R19. 7 DIARRHEA, UNSPECIFIED 03/14/2020 ROSEMARY SHERMAN MD Ot T83.32XA DISPLACEMENT OF INTRAUTERINE CONTRACEPTI 03/14/2020 ROSEMARY SHERMAN MD Ot Z68. 36 BODY MASS INDEX (BMI) 36.0-36.9, ADULT 03/14/2020 ROSEMARY SHERMAN MD Ot Z98. 84 BARIATRIC SURGERY STATUS 03/25/2020 ROSEMARY SHERMAN MD, Ot R94. 5 ABNORMAL RESULTS OF LIVER FUNCTION STUDI Procedures There is no data. Results Test [...] detection by light microscopy S LIGHT NRG THYROID STIMULATING HORMONE - 03/11/20 1 8:56 THYROID STIMULATING HORMONE 10.60 u[iU]/mL 0.35-4.94 Serum or plasma thyroxine (T4) free faiza urement (mass/volume) - 03/11/20 18:56 Serum or plasma thyroxine (T4) free measurement (mass/ volume) 0.95 ng/dL 0.70-1.48 Complete urinalysis with reflex to cultu re [...] urinalysis with reflex to culture NO NRG Complete blood count (CBC) with automate d white blood cell (WBC) differential - 03/12/20 05:35 Blood leukocytes automated count (number/volume) 5.4 10*3/uL 4.3-11.0 Blood erythrocytes automated count (number/volume) 4.37 10*6/uL 4.35-5.85 Venous blood hemoglobin measurement (mass/volume) 12.8 g/dL 11.5-16.0 Blood hematocrit (volume fraction) 40 % 35-52 Automated erythrocyte mean corpuscular volume 91 [ foz_us] 80-99 Automated erythrocyte mean corpuscular h emoglobin (mass per erythrocyte) 29 pg 25-34 Automated erythrocyte mean corpuscular h emoglobin concentration measurement (mass/volume) 32 g/dL 32-36 Automated erythrocyte distribution width ratio 17. 6 % 10.0- 14.5 Automated blood platelet count (count/volume) 332 10*3/uL 130-400 Automated blood platelet mean volume measurement 9.7 [foz_us] 7.4-10.4 Automated blood neutrophils/100 leukocytes 59 % 42-75 Automated blood lymphocytes/100 leukocytes 25 % 12-44 Blood monocytes/100 leukocytes 12 % 0-12 Automated blood eosinophils/100 leukocytes 4 % 0-10 Automated blood basophils/100 leukocytes 0 % 0-10 Blood neutrophils automated count (number/volume) 3.2 10*3 1.8-7.8 Blood lymphocytes automated count (number/volume) 1.4 10*3 1.0-4.0 Blood monocytes automated count (number/volume) 0. 6 10*3 0.0-1.0 Automated eosinophil count 0.2 10*3/uL 0 .0-0.3 Automated blood basophil count (count/volume) 0.0 10*3/uL 0.0-0.1 Comprehensive metabolic panel - 03/12/20 05:35 Serum or plasma sodium measurement (moles/volume) 141 mmol/L 135-145 Serum or plasma potassium measurement (moles/volume) 5.2 mmol/L 3.6-5.0 Serum or plasma chloride measurement (moles/volume) 109 mmol/L 98-107 Carbon dioxide 26 mmol/L 21-32 Serum or plasma anion gap determination (moles/volume) 6 mmol/L 5-14 Serum or plasma urea nitrogen measurement (mass/volume ) 8 mg/dL 7-18 Serum or plasma creatinine measurement (mass/volume) 0.81 mg/dL 0.60-1.30 Serum or plasma urea nitrogen/creatinine mass ratio 10 NRG Serum or plasma creatinine measurement w ith calculation of estimated glomerular filtration rate > NRG Serum or plasma glucose measurement (mass/volume) 87 mg/dL 70-105 Serum or plasma calcium measurement (mass/volume) 8.4 mg/dL 8.5-10.1 Serum or plasma total bilirubin measurement (mass/volu me) 0.6 mg/dL 0.1-1.0 Serum or plasma alkaline phosphatase archana surement (enzymatic activity/volume) 196 U/L 40-136 Serum or plasma aspartate aminotransfera se measurement (enzymatic activity/volume) 699 U/L 5-34 Serum or plasma alanine aminotransferase measurement (enzymatic activity/volume) 515 U/L 0-55 Serum or plasma protein measurement (mass/volume) 5.8 g/dL 6.4-8.2 Serum or plasma albumin measurement (mass/volume) 3.4 g/dL 3.2-4.5 CALCIUM CORRECTED 8.9 mg/dL 8.5-10.1 Lipase - 03/12/20 05:35 Lipase 73 U/L 8-78 Acute hepatitis panel - 03/12/20 05:35 HEPATITIS A ANTIBODY IGM TNP:Duplicate Test NRG HEPATITIS B CORE REECE IGM TNP:Duplicate Test NRG Confirmatory quantitative serum or plasm a hepatitis B virus surface antigen measurement TNP:Duplicate Test NRG Serum hepatitis C virus antibody detection T CLERK SECRETARY:Duplicate Test NRG Human immunodeficiency virus (HIV) type 1 and 2 antibody detection - 03/12/20 05:35 Serum HIV 1+2 antibody detection by immunoblot Non-Reactive Non-Reactive Acute hepatitis panel - 03/12/20 05:35 HEPATITIS A ANTIBODY IGM Non-Reactive N on-Reactive HEPATITIS B CORE REECE IGM Non-Reactive N on-Reactive Confirmatory quantitative serum or plasm a hepatitis B virus surface antigen measurement Non-Reactive Non-Reactive Serum hepatitis C virus antibody detection Non-[place] ctive Non-Reactive Lipid 1996 panel - 03/12/20 12:07 Serum or plasma triglyceride measurement (mass/volume) 136 mg/dL <150 Serum or plasma cholesterol measurement (mass/volume) 174 mg/dL < 200 Serum or plasma cholesterol in HDL measurement (mass/v olume) 49 mg/dL 40-60 Cholesterol in LDL [mass/volume] in serum or plasma by direct assay 117 mg/dL 1-129 Serum or plasma cholesterol in VLDL measurement (mass/ volume) 27 mg/dL 5-40 Serum or plasma amylase measurement (enz ymatic activity/volume) - 03/12/20 12:07 Serum or plasma amylase measurement (enzymatic activit y/volume) 65 U/L 25-125 Comprehensive metabolic panel - 03/13/20 06:09 Serum or plasma sodium measurement (moles/volume) 140 mmol/L 135-145 Serum or plasma potassium measurement (moles/volume) 4.7 mmol/L 3.6-5.0 Serum or plasma chloride measurement (moles/volume) 108 mmol/L 98-107 Carbon dioxide 25 mmol/L 21-32 Serum or plasma anion gap determination (moles/volume) 7 mmol/L 5-14 Serum or plasma urea nitrogen measurement (mass/volume ) 7 mg/dL 7-18 Serum or plasma creatinine measurement (mass/volume) 0.82 mg/dL 0.60-1.30 Serum or plasma urea nitrogen/creatinine mass ratio 9 NRG Serum or plasma creatinine measurement w ith calculation of estimated glomerular filtration rate > NRG Serum or plasma glucose measurement (mass/volume) 81 mg/dL 70-105 Serum or plasma calcium measurement (mass/volume) 8.5 mg/dL 8.5-10.1 Serum or plasma total bilirubin measurement (mass/volu me) 0.9 mg/dL 0.1-1.0 Serum or plasma alkaline phosphatase archana surement (enzymatic activity/volume) 171 U/L 40-136 Serum or plasma aspartate aminotransfera se measurement (enzymatic activity/volume) 171 U/L 5-34 Serum or plasma alanine aminotransferase measurement (enzymatic activity/volume) 279 U/L 0-55 Serum or plasma protein measurement (mass/volume) 5.7 g/dL 6.4-8.2 Serum or plasma albumin measurement (mass/volume) 3.3 g/dL 3.2-4.5 CALCIUM CORRECTED 9.1 mg/dL 8.5-10.1 Comprehensive metabolic panel - 03/14/20 04:53 Serum or plasma sodium measurement (moles/volume) 139 mmol/L 135-145 Serum or plasma potassium measurement (moles/volume) 4.0 mmol/L 3.6-5.0 Serum or plasma chloride measurement (moles/volume) 107 mmol/L 98-107 Carbon dioxide 22 mmol/L 21-32 Serum or plasma anion gap determination (moles/volume) 10 mmol/L 5-14 Serum or plasma urea nitrogen measurement (mass/volume ) 5 mg/dL 7-18 Serum or plasma creatinine measurement (mass/volume) 0.79 mg/dL 0.60-1.30 Serum or plasma urea nitrogen/creatinine mass ratio 6 NRG Serum or plasma creatinine measurement w ith calculation of estimated glomerular filtration rate > NRG Serum or plasma glucose measurement (mass/volume) 80 mg/dL 70-105 Serum or plasma calcium measurement (mass/volume) 8.7 mg/dL 8.5-10.1 Serum or plasma total bilirubin measurement (mass/volu me) 0.7 mg/dL 0.1-1.0 Serum or plasma alkaline phosphatase archana surement (enzymatic activity/volume) 163 U/L 40-136 Serum or plasma aspartate aminotransfera se measurement (enzymatic activity/volume) 79 U/L 5-34 Serum or plasma alanine aminotransferase measurement (enzymatic activity/volume) 195 U/L 0-55 Serum or plasma protein measurement (mass/volume) 6.0 g/dL 6.4-8.2 Serum or plasma albumin measurement (mass/volume) 3.5 g/dL 3.2-4.5 CALCIUM CORRECTED 9.1 mg/dL 8.5-10.1 Coronavirus SARS-CoV-2 SO 2019 - 0 08:35 Coronavirus Ab [Units/volume] in Serum Negative Negative Complete blood count (CBC) with automate d white blood cell (WBC) differential - 03/21/20 09:10 Blood leukocytes automated count (number/volume) 7.7 10*3/uL 4.3-11.0 Blood erythrocytes automated count (number/volume) 4.68 10*6/uL 4.35-5.85 Venous blood hemoglobin measurement (mass/volume) 13.9 g/dL 11.5-16.0 Blood hematocrit (volume fraction) 42 % 35-52 Automated erythrocyte mean corpuscular volume 90 [ foz_us] 80-99 Automated erythrocyte mean corpuscular h emoglobin (mass per erythrocyte) 30 pg 25-34 Automated erythrocyte mean corpuscular h emoglobin concentration measurement (mass/volume) 33 g/dL 32-36 Automated erythrocyte distribution width ratio 16. 4 % 10.0- 14.5 Automated blood platelet count (count/volume) 407 10*3/uL 130-400 Automated blood platelet mean volume measurement 10.0 [foz_us] 7.4-10.4 Automated blood neutrophils/100 leukocytes 69 % 42-75 Automated blood lymphocytes/100 leukocytes 18 % 12-44 Blood monocytes/100 leukocytes 10 % 0-12 Automated blood eosinophils/100 leukocytes 2 % 0-10 Automated blood basophils/100 leukocytes 0 % 0-10 Blood neutrophils automated count (number/volume) 5.3 10*3 1.8-7.8 Blood lymphocytes automated count (number/volume) 1.4 10*3 1.0-4.0 Blood monocytes automated count (number/volume) 0. 8 10*3 0.0-1.0 Automated eosinophil count 0.2 10*3/uL 0 .0-0.3 Automated blood basophil count (count/volume) 0.0 10*3/uL 0.0-0.1 Liver function panel (serum or plasma al k phos, alb, total and direct bili, total protein, ALT, AST) - 03/21/20 09:10 Serum or plasma total bilirubin measurement (mass/volu me) 0.6 mg/dL 0.1-1.0 Serum or plasma alkaline phosphatase archana surement (enzymatic activity/volume) 128 U/L 40-136 Serum or plasma aspartate aminotransfera se measurement (enzymatic activity/volume) 20 U/L 5-34 Serum or plasma alanine aminotransferase measurement (enzymatic activity/volume) 33 U/L 0-55 Serum or plasma protein measurement (mass/volume) 6.6 g/dL 6.4-8.2 Serum or plasma albumin measurement (mass/volume) 3.9 g/dL 3.2-4.5 Bilirubin direct 0.3 mg/dL 0.0-0.3 Serum or plasma indirect bilirubin measurement (mass/v olume) 0.3 mg/dL NRG Comprehensive metabolic panel - 03/21/20 09:10 Serum or plasma sodium measurement (moles/volume) 137 mmol/L 135-145 Serum or plasma potassium measurement (moles/volume) 4.4 mmol/L 3.6-5.0 Serum or plasma chloride measurement (moles/volume) 105 mmol/L 98-107 Carbon dioxide 24 mmol/L 21-32 Serum or plasma anion gap determination (moles/volume) 8 mmol/L 5-14 Serum or plasma urea nitrogen measurement (mass/volume ) 13 mg/dL 7-18 Serum or plasma creatinine measurement (mass/volume) 0.71 mg/dL 0.60-1.30 Serum or plasma urea nitrogen/creatinine mass ratio 18 NRG Serum or plasma creatinine measurement w ith calculation of estimated glomerular filtration rate > NRG Serum or plasma glucose measurement (mass/volume) 76 mg/dL 70-105 Serum or plasma calcium measurement (mass/volume) 8.7 mg/dL 8.5-10.1 Serum or plasma total bilirubin measurement (mass/volu me) 0.6 mg/dL 0.1-1.0 Serum or plasma alkaline phosphatase archana surement (enzymatic activity/volume) 122 U/L 40-136 Serum or plasma aspartate aminotransfera se measurement (enzymatic activity/volume) 22 U/L 5-34 Serum or plasma alanine aminotransferase measurement (enzymatic activity/volume) 33 U/L 0-55 Serum or plasma protein measurement (mass/volume) 6.5 g/dL 6.4-8.2 Serum or plasma albumin measurement (mass/volume) 3.9 g/dL 3.2-4.5 CALCIUM CORRECTED 8.8 mg/dL 8.5-10.1 Blood type T Indirect antibody screen pa neto - 03/21/20 09:10 WRISTBAND NUMBER [id number] NRG ABO+Rh group AN NRG Blood group antibody screen NEGATIVE NR G Methicillin resistant Staphylococcus aur eus (MRSA) screening culture - 03/21/20 09:10 Methicillin resistant Staphylococcus aureus (MRSA) scr eening culture NEG NRG Complete urinalysis with reflex to cultu re - 03/21/20 09:25 Urine color determination YELLOW NRG Urine clarity determination CLEAR NR G Urine pH measurement by test strip 7.0 5-9 Specific gravity of urine by test strip <= 1.016-1.022 Urine protein assay by test strip, semi-quantitative NEGATIVE NEGATIVE Urine glucose detection by automated test strip NE GATIVE NEGATIVE Erythrocytes detection in urine sediment by light micr oscopy NEGATIVE NEGATIVE Urine ketones detection by automated test strip NE GATIVE NEGATIVE Urine nitrite detection by test strip NEGATIVE NEGATIVE Urine total bilirubin detection by test strip NEGA TIVE NEGATIVE Urine urobilinogen measurement by automated test strip (mass/volume) 0.2 mg/dL < = 1.0 Urine leukocyte esterase detection by dipstick NEG ATIVE NEGATIVE Automated urine sediment erythrocyte cou nt by microscopy (number/high power field) NONE NRG Automated urine sediment leukocyte count by microscopy (number/high power field) RARE NRG Bacteria detection in urine sediment by light microsco py TRACE NRG Squamous epithelial cells detection in u rine sediment by light microscopy 5-10 NRG Crystals detection in urine sediment by light microsco py NONE NRG Casts detection in urine sediment by light microscopy NONE NRG Mucus detection in urine sediment by light microscopy SMALL NRG Complete urinalysis with reflex to culture NO NRG Encounters ACCT No. Visit Date/Time Discharge Status Pt. Type Provider Facility Loc./Unit Complaint [id number] 03/11/2020 10:00:00 03/11/2020 23:59: 59 CLS Outpatient RADHA NAZARIO LAC [facility] [id number] 03/04/2020 13:45:00 Document Registration [id number] 11/16/2018 18:00:00 Document Registration [id number] 03/21/2020 09:14:00 23:59:59 CLS Outpatient [facility] [id number] 03/21/2020 07:22:00 020 10:14:00 DIS Outpatient KIANNA SHINE DO [facility] PREOP ROBO HYST [id number] 03/11/2020 20:27:00 020 10:31:00 DIS Outpatient ROSEMARY SHERMAN MD [facility] 4TH PANCREATITIS,NAUSEA,ILE US [id number] 03/26/2020 08:00:00 P EN Preadmit KIANNA SHINE DO [facility] MENORRHAGIA/GENITAL PROLAPSE /ADHESIONS
[2020-03-26] MEDS ORDERED: ceFAZolin INJECTION 1,000 MG in WATER (STERILE) FOR INJECTION 10 ML IV ONE (08:00)
[2020-03-26] MEDS ORDERED: metroNIDAZOLE 500MG/100ML IVPB 100 ML IV ONE (08:00)
[2020-03-26] MEDS ORDERED: NEOSTIGMINE 3 MG/3 ML VIAL ONE (08:56)
[2020-03-26] MEDS ORDERED: GLYCOPYRROLATE 0.2 MG/ML (ROBINUL) 2 ML VIAL ONE (08:56)
[2020-03-26] MEDS ORDERED: HYDROmorphone 2 MG/ML VIAL (DILAUDID) ONE (10:44)
[2020-03-26] MEDS ORDERED: HYDROmorphone (DILAUDID) 2 MG TAB PO PRN (10:45)
[2020-03-26] MEDS ORDERED: ONDANSETRON 4 MG/2 ML (SDV) Z0FRAN IVP PRN (10:45)
[2020-03-26] MEDS ORDERED: PROMETHAZINE INJ 25 MG/ML (PHENERGAN) AMP IVP ONE (10:45)
[2020-03-26] MEDS ORDERED: ONDANSETRON 4 MG (ZOFRAN) ORAL DISSOLVE TAB PO PRN (10:45)
[2020-03-26] MEDS ORDERED: MEPERIDINE (DEMEROL) INJ 50 MG/ML IVP ONE (10:45)
[2020-03-26] MEDS ORDERED: morphine INJ 4 MG/ML 1 ML (VIAL/SYRINGE) IV PRN (10:45)
[2020-03-26] MEDS ORDERED: morphine INJ 10 MG/ML 1ML (SYR OR VIAL) IVP ONE (10:45)
[2020-03-26] MEDS: LACTATED RINGERS 1,000 ML IV SCH ×3 (10:45→23:29)
[2020-03-26] MEDS ORDERED: HYDROmorphone 2 MG/ML VIAL (DILAUDID) IV ONE (10:45)
--- NOTE | 2020-03-26 10:45 | Operative Report ---
Operative Report Date of Procedure/Surgery Mar 26, 2020 Surgeon (s) KIANNA SHINE DO Employee Health Nurse (s): NA Post-Operative Diagnosis menorrhagia, endometriosis Left ovarian hemorrhagic cyst (6 cm) Right peritubal cyst rectocele uterogenital prolapse stress incontinence Procedure Performed RaTH, bilateral salpingectomy. Left oophorectomy rectocele repair fulgeration of endometriosis pubovaginal sling Description of Procedure Anesthesia Type: General Estimated blood loss (mL): 200 Specimen(s) collected/removed uterus, bilateral tubes, left ovary Description of the Procedure After informed consent was obtained, patient was taken into the operating room where general anesthetic was found to be adequate. She was prepped and draped in the usual sterile fashion in the dorsal lithotomy position. A Kenney catheter was placed. A speculum was placed in the vagina. There was a large rectocele, and a smaller cystocele. The cervix was visualized and the anterior lip was grasped with a sharp toothed tenaculum. The uterus was sounded and depth was approximately 10 centimeters. I placed the Ofe device (10 cm) and a 3.5 cm collar was advanced over the cervix. I inserted the Ofe without difficulty, inflating the balloon and securing it around the fornix of the cervix. The collar was then secured with sutures at 12 o'clock. Attention was then turned to the patient's abdomen. A supraumbilical incision was made about 8 mm. A Veress needle was inserted and I confirmed intraabdominal placement with a drop in pressure and the saline drop test. The opening pressure was 7 mmHg. I then insufflated the abdomen to a maximum of 15 mmHg with warmed CO2 gas. I placed an additional 8 mm trocar in the left abdomen lateral to the umbilicus approximately 15 cm. The second robotic port was placed about 12 cm lateral to the right placement. This was an 8 mm trocar. These were placed under direct visualization of the laparoscope. 0.25% Marcaine was injected prior to placement of all trocars. When all placements were confirmed, the patient was placed in steep Tr endelenburg allowing adequate visualization and the robot was brought in for docking. The docking was accomplished without difficulty. I then took over the command of the robot utilizing the vessel sealer and monopolar shruthi. I was able to visualize the round ligaments bilaterally and grasped them and cauterized with bipolar cautery and then cut with my shruthi. At this point, I then did bilateral salpingectomy. I incised the mesosalpinx with the shruthi. Then, I grasped with cornu and transected bilaterally using the vessel sealer. The right arm of the IUD was noted to be perforating through the left side of the uterus near the left cornu. There was no bleeding, no adhesions and no damage. I then moved my dissection to the posterior leaves of the broad ligament. I dissected the posterior leaves of the broad ligament off the uterine arteries skeletonizing them bilaterally. I then took a second clamp with the bipolar cautery and with the shruthi, transected the vessels away from the lateral aspect to the cervical stroma. I dissected the anterior peritoneum off the lower uterine segment. I continually pushed the bladder back and I took excessively great care and I was eventually able to dissect the vesicouterine peritoneum off the lower uterine segment. I then dissected in a V fashion towards the midline between the uterosacral ligaments. This allowed me to skeletonize the uterine vessels bilaterally. The balloon on the OFE was insufflated. This allowed me to see the OFE circumferentially. I then performed a colpotomy anteriorly and then amputate with cervix away from the vaginal fornix. I then continued the colpotomy circumferentially. Once this was performed, the parking assistant removed the uterus, tubes and ovaries through the vagina. She then left the uterus in the vagina to maintain the pneumoperitoneum. . I then began closure of the vaginal cuff. The uterus was left in the vagina to maintain pneumoperitoneum. I closed the apices of the vaginal cuff with 2-0 Vicryl V lock sutures with a colposuspension through the uterosacral ligaments. This suspended the apices of the vaginal cuff. I extended this to the midline from both sides and overlapped the V lock sutures in the midline. Excellent closure is noted and hemostasis is achieved. All the needles were removed from the patient's abdomen. There was a cyst noted on the right ovary. The ovary otherwise appeared normal. I perforated and fulgerated the cyst and drained clear fluid. I did not remove the ovary or the cyst wall. Now, the robotic instruments were removed and the robot was docked back to laparoscopy. The pelvis was irrigated. There was no active bleeding noted. Bilateral ureters were seen the entire time during the surgery and were peristalsing. There was no excessive bleeding noted. The trocars were removed under direct visualization. The laparoscopic sites were visualized and found to be hemostatic. The trocar sites were injected with 0.25% Marcaine. The skin incisions were closed with 4-0 Monocryl in a subcuticular fashion and then with Dermabond. Op sites were placed over the incision sites. The instruments were removed from the vagina and I noted there were no abrasions. The patient was repositioned. The cystocele was mostly reduced so the rectocele was now repaired. I grasped the perineum on either side of the midline with the hira clamps. I then injected the posterior epithelium with the dilute vasopressin and then made a midline incision I undermined the posterior vaginal epithelium and then dissected this off of the pubovaginal fascia laterally. I then reduced the rectocele with two layers of interrupted figure of eight style 2-0 Vicryl sutures. This adequately reduced the rectocele. There was no enterocele. I then trimmed the vaginal epithelium and then closed the defect with 2-- Vicryl in a running fashion. the vagina was then packed with Estrace cream and vaginal packing. Sponge, lap, needle and instrument counts correct times two. Patient was awakened and taken to recovery in a stable condition. Findings of the Procedure enlarged boggy uterus Left hemorrhagic ovarian cyst at least 6 cm right peritubal cyst large (3+) rectocele with scarred perineum enterocele (not repaired due to endometriosis) intraabdominal adhesions due to previous surgical procedures, none in lower pelvis or omentum Allergies and Home Medications Allergies Coded Allergies: codeine (Verified Adverse Reaction, Intermediate, pancreatitis, 03/26/20) Home Medications Acetaminophen 500 Mg Tablet, 1,000 MG PO Q8H PRN for PAIN-MILD (1-4), (Reported) Acetaminophen 500 Mg Tablet, 500 MG PO Q8HR Prescribed by: KIANNA SHINE on 03/27/20 0754 Benzocaine/Menthol 78 Gm Aerosol, 56 ML TP UD PRN for PAIN-MILD (1-4) Prescribed by: KIANNA SHINE on 03/27/20 0757 Cyanocobalamin 1,000 Mcg/Ml Inj, 1,000 MCG IJ WEEKLY, (Reported) Docusate Sodium 100 Mg Capsule, 100 MG PO BID Prescribed by: KIANNA SHINE on 03/27/20 0754 Ferrous Sulfate 325 Mg Tablet, 325 MG PO DAILY, (Reported) Fluoxetine HCl 40 Mg Capsule, 40 MG PO DAILY, (Reported) Hydromorphone HCl 2 Mg Tablet, 2 MG PO Q6H PRN for PAIN-SEVERE (8-10) Prescribed by: KIANNA SHINE on 03/27/20 075 Levothyroxine Sodium 112 Mcg Tablet, 112 MCG PO DAILY, (Reported) Simethicone 80 Mg Tab.chew, 80 MG PO Q2H Prescribed by: KIANNA SHINE on 03/27/20 0757 Patient Home Medication List Home Medication List Reviewed: Yes KIANNA SHINE DO Mar 26, 2020 10:45
[2020-03-26] MEDS ORDERED: CHLORASEPTIC LOZENGE MM PRN (11:00)
[2020-03-26] MEDS ORDERED: BENZOCAINE/MENTHOL (DERMOPLAST) 60 ML CAN TP PRN (11:00)
--- NOTE | 2020-03-26 11:40 | NUR ---
See nursing interventions.
--- NOTE | 2020-03-26 11:40 | NUR ---
received pt from PACU via hospital bed. Accompanied via surgery staff. Pt stable. IV infusing without difficulty. Kenney to DD patent clear yellow urine.
--- NOTE | 2020-03-26 13:55 | NUR ---
Notified Dr Garcia that c/o not being able to move left leg well. No new orders.
[2020-03-26] MEDS: KETOROLAC 30 MG/ML VIAL IV SCH ×2 (14:11→20:19)
[2020-03-26] MEDS: ACETAMINOPHEN 500 MG TAB (TYLENOL) PO SCH ×2 (14:11→22:50)
[2020-03-26 16:10] LABS: ALBUMIN 3.3 GM/DL (3.2-4.5); BILIRUBIN,DIRECT 0.2 MG/DL (0.0-0.3); BILIRUBIN,INDIRECT 0.3 MG/DL; BILIRUBIN,TOTAL 0.5 MG/DL (0.1-1.0); TOTAL PROTEIN 5.7 GM/DL (6.4-8.2)
--- NOTE | 2020-03-26 16:30 | NUR ---
Notified Dr Garcia of pt's lab result, AST 228,ALT 143, Alkaline Phosphatase 159, total protein 5.7.
[2020-03-26] MEDS: DOCUSATE SODIUM 100 MG (COLACE) CAP PO SCH (20:15)
[2020-03-26] MEDS: ENOXAPARIN 40 MG/0.4 ML (LOVENOX) SYR SC SCH (20:15)
[2020-03-26] MEDS ORDERED: traZODone 50 MG (DESYREL) TAB PO SCH (21:00)
[2020-03-27] MEDS: KETOROLAC 30 MG/ML VIAL IV SCH ×2 (01:35→07:39)
[2020-03-27] MEDS: ACETAMINOPHEN 500 MG TAB (TYLENOL) PO SCH (02:45)
[2020-03-27 03:16] VITALS: BP 101/59
--- NOTE | 2020-03-27 06:00 | NUR ---
GONZALEZ CATHETER AND VAGINAL PACKING REMOVED AT THIS TIME. PT TOLERATED PROCEDURE WELL.
[2020-03-27 06:02] LABS: ALBUMIN 2.9 GM/DL (3.2-4.5); CHLORIDE 102 MMOL/L (98-107); POTASSIUM 4.4 MMOL/L (3.6-5.0); SODIUM 133 MMOL/L (135-145)
[2020-03-27] MEDS: LACTATED RINGERS 1,000 ML IV SCH (06:03)
[2020-03-27 06:04] LABS: CALCIUM 7.7 MG/DL (8.5-10.1)
[2020-03-27 06:05] LABS: GLUCOSE 87 MG/DL (70-105); TOTAL PROTEIN 4.9 GM/DL (6.4-8.2)
[2020-03-27 06:06] LABS: CARBON DIOXIDE 23 MMOL/L (21-32)
[2020-03-27 06:07] LABS: BILIRUBIN,TOTAL 0.3 MG/DL (0.1-1.0)
[2020-03-27 06:08] LABS: ALKALINE PHOSPHATASE 131 U/L (40-136); CREATININE SERUM 0.71 MG/DL (0.60-1.30); GFR ESTIMATED > 60
[2020-03-27 06:09] LABS: BUN/CREATININE RATIO 14
[2020-03-27 06:11] LABS: ALANINE AMINOTRANSFERASE 159 U/L (0-55)
[2020-03-27] MEDS ORDERED: LEVOTHYROXINE 112 MCG (LEVOTHROID) TAB PO SCH (06:30)
--- NOTE | 2020-03-27 07:38 | Anesthesia-General Post-Op ---
General Patient Condition Mental Status/LOC: Same as Preop Cardiovascular: Satisfactory Nausea/Vomiting: Absent Respiratory: Satisfactory Pain: Controlled Complications: Absent Post Op Complications Complications None Follow Up Care/Instructions Patient Instructions None needed. Anesthesia/Patient Condition Patient Condition Patient is doing well, no complaints, stable vital signs, no apparent adverse anesthesia problems. No complications reported per nursing. JUNE GUDINO CRNA Mar 27, 2020 07:38
[2020-03-27 07:40] VITALS: BP 108/50
[2020-03-27] MEDS ORDERED: ACET-93 PO (07:54)
[2020-03-27] MEDS ORDERED: HYDR2TAB6 PO (07:54)
[2020-03-27] MEDS ORDERED: DCS100C PO (07:54)
[2020-03-27] MEDS ORDERED: BENZ78AE2 TP (07:57)
[2020-03-27] MEDS ORDERED: SIME80TA16 PO (07:57)
[2020-03-27] MEDS ORDERED: FERROUS SULF 325 MG (IRON) TAB PO SCH (08:00)
--- NOTE | 2020-03-27 08:01 | Discharge Inst-Women's Service ---
Discharge Inst-Women's Serv Depart Medication/Instructions New, Converted or Re-Newed RX: Other (rxtransmitted and printed) Instructions continue to follow gastric bypass diet increase fiber intake 64-80 ounces water daily no driving for 1 week nothing in the vagina for 10-12 weeks no lifting over 25 lbs Final Diagnosis menorrhagia anemia incomplete urogenital prolapse rectocele stress incontinence elevated liver function test chronic constipation Problems Reviewed?: Yes Consults/Follow Up Additional Follow Up: Yes (1 week with Naye and 10-12 weeks with Jose) Activity Activity: Activity as Tolerated (see above) Driving Instructions: No Driving for 1 Week NO SMOKING: NO SMOKING Nothing Inside Vagina: No Douching, No [place], No Tampons Diet Discharge Diet: Other Diet (gastric bypass and high fiber) Symptoms to Report to : Bleeding Excessive, Pain Increased, Constipation(Persistant) (ok to use milk of magnesia. Do not do enema), Fever Over 101 Degrees F, Urination Difficulty, Vaginal Bleeding Increase, Cramps in Feet or Legs, Lightheadedness, Vaginal Discharge Foul For Any Problems or Questions: Contact Your Physician Skin/Wound Care Infection Signs and Symptoms: Increased Redness, Foul Odor of Wound, Increased Drainage, Skin Itchy or Has a Rash, Increased Swelling, Temperature Above 101 F Operative Area Clean and Dry: Keep Incision Clean/Dry, You May Remove Bandage (on day 3) Stitches/[place]/Dermabond: Dermabond Bathing Instructions: KIANNA Hahn DO Mar 27, 2020 08:01
--- NOTE | 2020-03-27 08:38 | Progress Note ---
Progress Note Assessment/Plan Date Seen by Provider: Mar 27, 2020 Time Seen by Provider: 08:15 Vitals Last set of Vitals Signs Vital Signs Date Time Temp Pulse Resp B/P (MAP) Pulse Ox O2 Delivery O2 Flow Rate FiO2 03/27/20 03:16 36.0 58 16 101/59 (73) 95 Room Air 03/26/20 11:20 3 I&O I&O Intake and Output 03/27/20 00:00 Intake Total 5510 ml Output Total 1250 ml Balance 4260 ml Intake Oral 2400 ml IV Total 3110 ml Output Urine Total 1250 ml Labs Laboratory Tests 03/26/20 15:25: Total Bilirubin 0.5, Direct Bilirubin 0.2, Indirect Bilirubin 0.3, Aspartate Amino Transf (AST/SGOT) 228H, Alanine Aminotransferase (ALT/SGPT) 143H, Alkaline Phosphatase 159H, Total Protein 5.7L, Albumin 3.3 03/27/20 05:42: Total Bilirubin 0.3, Aspartate Amino Transf (AST/SGOT) 150H, Alanine Callahan otransferase (ALT/SGPT) 159H, Alkaline Phosphatase 131, Total Protein 4.9L, Albumin 2.9L, Sodium Level 133L, Potassium Level 4.4, Chloride Level 102, Carbon Dioxide Level 23, Anion Gap 8, Blood Urea Nitrogen 10, Creatinine 0.71, Estimat Glomerular Filtration Rate > 60, BUN/Creatinine Ratio 14, Glucose Level 87, Calcium Level 7.7L, Corrected Calcium 8.6 KIANNA SHINE DO Mar 27, 2020 08:38
[2020-03-27] MEDS ORDERED: FLUoxetine HCL 20 MG (PROzac) CAP PO SCH (09:00)
[2020-03-27] MEDS: DOCUSATE SODIUM 100 MG (COLACE) CAP PO SCH (09:11)
[2020-03-27] MEDS: ENOXAPARIN 40 MG/0.4 ML (LOVENOX) SYR SC SCH (09:12)
--- NOTE | 2020-03-27 09:56 | Physical Therapy Evaluation ---
PT Evaluation-General Medical Diagnosis Admission Date Medical Diagnosis: left hip pain and weakness after surgery - RECTOCELE REPAIR AND SLING Onset Date: Mar 26, 2020 Therapy Diagnosis Therapy Diagnosis: impaired mobility and strength Precautions Precautions/Isolations: Standard Precautions Referral Physician: Jose Reason for Referral: Evaluation/Treatment Medical History Reviewed History: Yes Social History Current Living Status: Children Entry Into Home: Stairs With Railing PT Steps Into Home: 5 Patient lives with her 14 year old son, patient states he should be able to help her get up the stairs to get into her home. Prior Prior Level of Function SCALE: Activities may be completed with or without assistive devices. 8-Rergraktqn-sknirdc completes the activity by him/herself with no assistance from a helper. 5-Set-up or Clean-up Assistance-helper sets up or cleans up; patient completes activity. [place] assists only prior to or following the activity. 4-Supervision or Touching Assistance-helper provides verbal cues and/or touching/steadying and/or contact guard assistance as patient completes activity. Assistance may be provided throughout the activity or intermittently. 3-Partial/Moderate Assistance-helper does LESS THAN HALF the effort. [place] lifts, holds or supports trunk or limbs, but provides less than half the effort. 2-Substantial/Maximal Assistance-helper does MORE THAN HALF the effort. [place] lifts or holds trunk or limbs and provides more than half the effort. 5-Etcbpluht-nxpyap does ALL the effort. Patient does none of the effort to complete the activity. Or, the assistance of 2 or more helpers is required for the patient to complete the activity. If activity was not attempted, code reason: 7-Patient Refused. 9-Not Applicable-not attempted and the patient did not perform the activity before the current illness, exacerbation or injury. 10-Not Attempted due to Environmental Limitations-(lack of equipment, weather restraints, etc.). 88-Not Attempted due to Medical Conditions or Safety Concerns. Bed Mobility: 6 Transfers (B,C,W/C): 6 Gait: 6 Stairs: 6 Indoor Mobility (Ambulation): Independent Stairs: Independent PT Evaluation-Current Subjective Patient in bed pre tx, agrees to PT, has pain with movement in left hip area of 8/10 Pt/Family Goals decrease pain Objective Patient Orientation: Person, Place, Situation ROM/Strength ROM Lower Extremities WNL Strength Lower Extremities RLE 5/5 gross, LLE (hip flexion 2/5, knee flexion 4/5, knee extension 4/5, dorsiflexion 4/5) Sensory Vision: Wears Glasses Hearing: Functional Sensation Right Lower Extremit: Intact Sensation Left Lower Extremity: Intact Transfers Roll Left to Right (QC): 6 Sit to Lying (QC): 3 Lying to Sitting/Side of Bed(Q: 4 Sit to Stand (QC): 4 Chair/Pib-tr-Bucib Xfer(QC): 4 Patient is independent with bed mobility, SBA with supine to sit, min assist with sit to supine, CGA for sit to stand and transfers. Gait Does the Patient Walk?: Yes Mode of Locomotion: Walk Anticipated Mode of Locomotion: Walk Walk 10 feet (QC): 4 Distance: 30' Comments/Gait Description slow, antalgic, she is able to bear weight on left leg, no LOB Balance Sitting Static: Normal Standing Static: Good Standing Dynamic: Good Treatment Negative mini, patient doesn't have an abnormal swelling, heat, or redness in left leg. Negative babinski reflex, no abnormal clonus. Patient has a negative slump test and no increased pain with quadrant test, no pain with palpation in low back but does have pain with palpation in left buttock and hip in area of greater trochanter. Assessment/Needs Patient has impaired mobility, strength. Probable muscle inflammation and/or sciatica. Recommend patient go to outpatient PT, however, patient states her pain has already improved since yesterday. Most likely pain will improve over the next few days. Rehab Potential: Fair PT Plan Problem List Problem List: Activity Tolerance, Functional Strength, Gait, Transfer Treatment/Plan Treatment Plan: Discontinue PT (patient is discharging today) Treatment Duration: Mar 27, 2020 Frequency: Patient and/or Family Agrees t: Yes Safety Risks/Education Patient Education: Gait Training, Transfer Techniques, Correct Positioning, Safety Issues Teaching Recipient: Patient Teaching Methods: Demonstration, Discussion Response to Teaching: Reinforcement Needed Discharge Recommendations Plan DC Therapy Discharge Recommendati: Home & Family, Post Acute PT Time/GCodes Time In: 930 Time Out: 942 Total Billed Treatment Time: 12 Total Billed Treatment 1 visit EVL 12' LETI VILLALTA PT Mar 27, 2020 09:56
[2020-03-27] MEDS ORDERED: IBUPROFEN 600 MG (MOTRIN) TAB PO SCH (13:30)
== END 2020-03-27 11:50 | disposition home or self-care (01) ==
LOC: SDC 06:18 → WS 11:40 → SDC 03-27 11:50
PROVIDERS: ATTEND Obstetrics & Gynecology
DX: D25.2 Subserosal leiomyoma of uterus (principal); N80.0 Endometriosis of uterus; N83.8 Other noninflammatory disorders of ovary, fallopian tube and broad ligament; N83.02 Follicular cyst of left ovary; Z79.899 Other long term (current) drug therapy; Z90.49 Acquired absence of other specified parts of digestive tract; N39.3 Stress incontinence (female) (male); N81.2 Incomplete uterovaginal prolapse; K85.90 Acute pancreatitis without necrosis or infection, unspecified; N81.4 Uterovaginal prolapse, unspecified; D64.9 Anemia, unspecified; D50.9 Iron deficiency anemia, unspecified; F32.9 Major depressive disorder, single episode, unspecified
CPT/HCPCS: 57250; 57288; 58571; 58662; 80053; 80076; 84703; 86850; 86900; 86901; 94664 ×2; 94760; 97161; C1771; 36415